=== PATIENT | female | born 1990 | race Caucasian/White ===

== ENCOUNTER 2016-10-12 14:11 | Emergency (ER) | payer BC, OTHER ==
[2016-10-12 14:53] VITALS: RESP 18
[2016-10-12] MEDS ORDERED: predniSONE 50 MG TAB PO STA (15:12)
--- NOTE | 2016-10-12 15:36 | XR ---
Cervical spine HISTORY: Numbness down left arm 5 views of the cervical spine of 7 images There is loss of the normal lordosis. Anterolisthesis grade 1 C2-3, C3-4, C4-5. Cervical vertebral aristides dies show preserved height. Bone mineralization. Prevertebral soft tissues are normal. No evident for aminal encroachment. IMPRESSION: No acute fracture or subluxation.
--- NOTE | 2016-10-12 15:43 | ED ---
Neck Injury/Pain HPI - General Chief Complaint: Neck Pain/Injury Stated Complaint: NecK Pain/Numbness left arm Time Seen by Provider: 10/12/16 14:40 Source: RN notes reviewed Mode of arrival: ambulatory Limitations: no limitations - History of Present Illness Initial Comments: Patient is a 26-year-old female presents to the emergency room for evaluation of numbness and tingling in left arm. Patient states she has a history of neck pain over the past few months. Patient states neck pain has been getting worse. Patient states she woke up this morning and her left arm felt like its half fallen asleep. Patient states she can't move her arm secondary to it feeling numb. Patient states she's having left-sided neck pain. Patient denies any specific injury to her neck. Patient states that her left arm feels weak. Patient states taking ibuprofen with no relief of symptoms. - Related Data Home Medications Medication Instructions Recorded Confirmed Norgestimate-Ethinyl Estradiol 1 tab PO DAILY 10/11/15 10/11/15 [Ortho Tri-Cyclen 28 Tablet] Previous Rx's Medication Instructions Recorded Ibuprofen [Motrin] 600 mg PO Q6HR PRN #20 tab 10/12/16 predniSONE 50 mg PO DAILY #5 tab 10/12/16 Allergies Allergy/AdvReac Type Severity Reaction Status Date / Time No Known Allergies Allergy Verified 10/12/16 14:41 Review of Systems ROS Statement: Those systems with pertinent positive or pertinent negative responses have been documented in the HPI. ROS Other: All systems not noted in ROS Statement are negative. Past Medical History Past Medical History: Asthma Additional Past Medical History / Comment(s): sports induced, edema in fingers History of Any Multi-Drug Resistant Organisms: None Reported Past Surgical History: Section Past Anesthesia/Blood Transfusion Reactions: No Reported Reaction Past Psychological History: Anxiety, Bipolar, Depression Smoking Status: Never smoker Past Alcohol Use History: Occasional Past Drug Use History: None Reported - Past Family History Mother Family Medical History: Thyroid Disorder Additional Family Medical History / Comment(s): graves disease General Exam - General Exam Comments Initial Comments: Sitting in exam room, no acute distress. Limitations: no limitations General appearance: alert, in no apparent distress Head exam: Present: atraumatic, normocephalic, normal inspection Eye exam: Present: normal appearance ENT exam: Present: normal exam Neck exam: Present: normal inspection, full ROM. Absent: tenderness, lymphadenopathy Respiratory exam: Present: normal lung sounds bilaterally. Absent: respiratory distress Cardiovascular Exam: Present: regular rate, normal rhythm, normal heart sounds Back exam: Present: normal inspection Neurological exam: Present: alert, oriented X3, CN II-XII intact Expanded Sensory exam: Upper Extremity Light Touch: Normal, Lower Extremity Light Touch: Normal Motor strength exam: RUE: 5, LUE: 3 Psychiatric exam: Present: normal affect, normal mood Skin exam: Present: warm, dry, intact, normal color. Absent: rash Course Vital Signs 10/12/16 10/12/16 14:41 16:25 Temperature 97.8 F 98.1 F Pulse Rate 84 70 Respiratory 18 18 Rate Blood Pressure 131/59 134/66 O2 Sat by Pulse 98 98 Oximetry Medical Decision Making - Medical Decision Making Patient is a 26-year-old female presents emergency room for ablation left arm weakness. Patient states having minor neck pain. Patient does have full range of motion of her neck. Patient does have decreased strength in her right arm. Patient denies any other symptoms. Patient does appear to have cervical radiculopathy/paresthesia. Patient will be started on prednisone and advised to follow-up with primary care provider for possible MRI if symptoms are not improving. Patient states she understands everything that was discussed with her. Return parameters discussed. Case discussed with Dr. Ritchie. - Radiology Data Radiology results: report reviewed, image reviewed Disposition Clinical Impression: Cervical radiculopathy, Paresthesia and pain of left extremity Disposition: HOME SELF-CARE Condition: Good Instructions: Paresthesia (ED), Cervical Radiculopathy (ED), Neck Pain (ED) Additional Instructions: Take prednisone as directed. Take ibuprofen as needed for pain. Apply warm moist heat. Please follow-up with primary care provider in 24-48 hours for further evaluation. If any new symptom arises or symptoms worsen, return to ER as soon as possible. Prescriptions: Ibuprofen [Motrin] 600 mg PO Q6HR PRN #20 tab PRN Reason: Pain predniSONE 50 mg PO DAILY #5 tab Referrals: Mic Gross MD [Primary Care Provider] - 1-2 days Time of Disposition: 16:15
[2016-10-12 16:26] VITALS: BP 134/66; PULSE 70; TEMP 98.1
== END 2016-10-12 16:26 | disposition home or self-care (01) ==
LOC: EC 14:11
DX: M54.12 Radiculopathy, cervical region (principal); Z79.3 Long term (current) use of hormonal contraceptives
CPT/HCPCS: 72050; 99284; J7512

== ENCOUNTER 2017-01-11 21:03 | Emergency (ER) | payer BC ==
[2017-01-11 21:40] VITALS: BP 106/67; PULSE 80; RESP 20; TEMP 98.3
--- NOTE | 2017-01-11 23:54 | ED ---
Female Urogenital HPI - General Chief complaint: Vaginal Bleeding Stated complaint: vag spotting (8 weeks ) Time Seen by Provider: 01/11/17 22:39 Source: patient, RN notes reviewed, old records reviewed Mode of arrival: ambulatory Limitations: no limitations - History of Present Illness Initial comments: Is a 26-year-old female presents emergency Department chief complaint of vaginal spotting. Patient reports that she saw her [facility] CORONER earlier today and had her first exam. She reports that she is approximately 8 weeks . This is her third . No previous issues with the first 2 pregnancies. She did have 2 C-sections. Patient states that she's had no blood work at this time. She states she does have some lower abdominal cramping. Denies any nausea or vomiting, urinary symptoms or any other complaints. - Related Data Home Medications Medication Instructions Recorded Confirmed Pedi Multivit No.25/Folic Acid 1 tab PO BID 01/11/17 01/11/17 [Flintstones Multivit Chew Tab] Allergies Allergy/AdvReac Type Severity Reaction Status Date / Time No Known Allergies Allergy Verified 01/11/17 22:40 Review of Systems ROS Statement: Those systems with pertinent positive or pertinent negative responses have been documented in the HPI. ROS Other: All systems not noted in ROS Statement are negative. Past Medical History Past Medical History: Asthma Additional Past Medical History / Comment(s): sports induced, edema in fingers History of Any Multi-Drug Resistant Organisms: None Reported Past Surgical History: Section Past Anesthesia/Blood Transfusion Reactions: No Reported Reaction Past Psychological History: Anxiety, Bipolar, Depression Smoking Status: Never smoker Past Alcohol Use History: None Reported Past Drug Use History: None Reported - Past Family History Mother Family Medical History: Thyroid Disorder Additional Family Medical History / Comment(s): graves disease General Exam - General Exam Comments Initial Comments: Pleasant 26 [place] male. No distress. Limitations: no limitations General appearance: alert, in no apparent distress Head exam: Present: atraumatic, normocephalic, normal inspection Eye exam: Present: normal appearance, PERRL, EOMI. Absent: scleral icterus, conjunctival injection, periorbital swelling ENT exam: Present: normal exam, mucous membranes moist Neck exam: Present: normal inspection. Absent: tenderness, meningismus, lymphadenopathy Respiratory exam: Present: normal lung sounds bilaterally. Absent: respiratory distress, wheezes, rales, rhonchi, stridor Cardiovascular Exam: Present: regular rate, normal rhythm, normal heart sounds. Absent: systolic murmur, diastolic murmur, rubs, gallop, clicks GI/Abdominal exam: Present: soft, normal bowel sounds. Absent: distended, tenderness, guarding, rebound, rigid Extremities exam: Present: normal inspection, full ROM, normal capillary refill. Absent: tenderness, pedal edema, joint swelling, calf tenderness Back exam: Present: normal inspection Neurological exam: Present: alert, oriented X3, CN II-XII intact Psychiatric exam: Present: normal affect, normal mood Course Vital Signs 01/11/17 21:38 Temperature 98.3 F Pulse Rate 80 Respiratory 20 Rate Blood Pressure 106/67 O2 Sat by Pulse 100 Oximetry Medical Decision Making - Lab Data Lab Results 01/11/17 Range/Units 22:17 Blood Type B Positive Blood Type Recheck No - Radiology Data Radiology results: report reviewed 6 IUP measuring 7 weeks and 6 days. heart tones 181 bpm. No evidence of deepa-sac hemorrhage identified. Disposition Clinical Impression: Threatened miscarriage Disposition: HOME SELF-CARE Condition: Good Instructions: Threatened Miscarriage (ED) Additional Instructions: Patient is to follow-up with your [facility]. Repeat blood work in 2 days. Return to the emergency department if any alarming signs or symptoms occur. Referrals: Mic Gross MD [Primary Care Provider] - 1-2 days Time of Disposition: 00:24
--- NOTE | 2017-01-12 00:16 | US ---
History: Reason: pain Exam: US OB 1st TRIMESTER Comparison: None available FINDINGS: Single live intrauterine measuring 7 weeks and 6 days by crown- rump length. 8 weeks and 2 days by mean sac diameter. Yolk sac is present measuring 4 mm. heart tones 181 bpm, elevated. No evidence of deepa-sac hemorrhage identified. The ovaries are not identified. No evidence of adnexal mass. No free fluid seen. IMPRESSION: Single live intrauterine measuring 7 weeks and 6 days by crown- rump length. heart tones 181 bpm, elevated. No evidence of deepa-sac hemorrhage identified.
== END 2017-01-12 00:35 | disposition home or self-care (01) ==
LOC: EC 21:03
DX: O20.0 Threatened abortion (principal); Z3A.08 8 weeks gestation of pregnancy; Z79.899 Other long term (current) drug therapy
CPT/HCPCS: 36415; 76801; 84702; 86900; 86901; 99284

== ENCOUNTER → 2017-01-29 | Outpatient (CLI) | payer BC ==
[2017-01-29 10:16] LABS: CH 29.6; CHCM 32.9; HCT 38.9 % (34.0-46.0); HDW 2.26; HGB 12.8 gm/dL (11.4-16.0); MCH 29.7 pg (25.0-35.0); MCHC 32.9 g/dL (31.0-37.0); MCV 90.1 fL (80.0-100.0); Mean Platelet Volume 6.5; RBC 4.32 m/uL (3.80-5.40); RDW 13.6 % (11.5-15.5); WBC 11.4 k/uL (3.8-10.6)
[2017-01-29 10:39] LABS: Glucose 76 mg/dL (74-99); Non-African American GFR(MDRD) >60 (>60 ml/min/1.73 sqM)
[2017-01-29 11:09] LABS: Hepatitis B Surface Ag Index 0.07
[2017-01-29 15:26] LABS: Treponemal Ab Non-Reactive (Non-Reactive)
== END | disposition home or self-care (01) ==
LOC: LABWHC1 09:44
PROVIDERS: ATTEND Obstetrics & Gynecology
DX: O26.811 Pregnancy related exhaustion and fatigue, first trimester (principal); Z3A.00 Weeks of gestation of pregnancy not specified
CPT/HCPCS: 36415; 82565; 82947; 85027; 86762; 86780; 86850; 86900; 86901; 87340; 87390

== ENCOUNTER 2017-04-17 18:37 | Emergency (ER) | payer BC ==
[2017-04-17 19:13] VITALS: BP 114/59; PULSE 90; RESP 18; TEMP 98.6
[2017-04-17] MEDS ORDERED: Acetaminophen-Codeine 300-30mg TAB PO STA (20:42)
[2017-04-17] MEDS ORDERED: ONDANSETRON 4 MG ODT STARTER PACK 2 TAB BTL PO STA (20:42)
--- NOTE | 2017-04-17 20:49 | ED ---
General Adult HPI - General Chief complaint: Headache Stated complaint: Headache/can not see out lt eye Time Seen by Provider: 04/17/17 20:18 Source: patient, family, RN notes reviewed Mode of arrival: ambulatory Limitations: no limitations - History of Present Illness Initial comments: Chief complaint and history of present illness a 26-year-old female here with her . The patient is 20 weeks . She's had on-again off-again headache for 2 months. She does have a history of headaches and migraines. Tylenol has not been getting rid of the headache. Patient has a mild photophobia and some nausea and vomiting. No fever. No diarrhea. No rashes. - Related Data Home Medications Medication Instructions Recorded Confirmed Pedi Multivit No.25/Folic Acid 600 mcg PO DAILY 01/11/17 04/17/17 [Flintstones Multivit Chew Tab] Previous Rx's Medication Instructions Recorded Acetaminophen-Codeine 300-30mg 1 tab PO Q6H PRN #12 tablet 04/17/17 [Tylenol #3] Ondansetron Odt [Zofran Odt] 4 mg PO Q8HR PRN #10 tab 04/17/17 Allergies Allergy/AdvReac Type Severity Reaction Status Date / Time No Known Allergies Allergy Verified 04/17/17 20:21 Review of Systems ROS Statement: Those systems with pertinent positive or pertinent negative responses have been documented in the HPI. Review of systems. Mild headache mild photophobia. No meningeal irritation with neck flexion. No chest pain shortness breath no complaints of any problems. She is nauseated and has vomited several times. No neuro deficits. All systems were reviewed. Past medical problems asthma, migraines. Surgeries include 2 C-sections. Family history no cancers. Patient denies ALLERGIES nonsmoker drink alcohol rarely socially. ROS Other: All systems not noted in ROS Statement are negative. Past Medical History Past Medical History: Asthma Additional Past Medical History / Comment(s): migraines History of Any Multi-Drug Resistant Organisms: None Reported Past Surgical History: Section Past Anesthesia/Blood Transfusion Reactions: No Reported Reaction Past Psychological History: Anxiety, Bipolar, Depression Smoking Status: Never smoker Past Alcohol Use History: None Reported Past Drug Use History: None Reported - Past Family History Mother Family Medical History: Thyroid Disorder Additional Family Medical History / Comment(s): graves disease General Exam - General Exam Comments Initial Comments: General: The patient is awake and alert, U because of a migraine type headache with nausea vomiting. Vital signs are stable temperature 98.6 pulse 90 respiratory rate 18 pulse ox 90% room air blood pressure 114/59 Eye: Pupils are equal, round and reactive to light, extra-ocular movements are intact ; there is normal conjunctiva bilaterally. No signs of icterus. Mild photophobia Ears, nose, mouth and throat: There are moist mucous membranes and no oral lesions. Neck: The neck is supple, there is no tenderness, no meningeal irritation with neck flexion and extension. No meningismus.. Cardiovascular: There is a regular rate and rhythm. No murmur, rub or gallop is appreciated. Respiratory: Lungs are clear to auscultation, respirations are non-labored, breath sounds are equal. No wheezes, stridor, rales, or rhonchi. Gastrointestinal: Facial vomiting with headache and migraine headaches. Patient's 22 weeks . No vaginal discharge or any complaints. Back: No complaint of back pain. Musculoskeletal: Full range of motion upper and lower extremities. Neurological: No focal or lateralizing findings. Skin: Skin is warm and dry and no rashes or lesions are noted. Limitations: no limitations Course Vital Signs 04/17/17 19:10 Temperature 98.6 F Pulse Rate 90 Respiratory 18 Rate Blood Pressure 114/59 O2 Sat by Pulse 98 Oximetry Medical Decision Making - Medical Decision Making Medical decision making; the patient has a history of migraines. History of several months of headache that comes and goes. She's had some nausea and vomiting today. She is 22 weeks . The patient's only when trying Tylenol at home. The plan the patient will be tried on Tylenol No. 3 one every 4-6 hours when necessary pain as well as Zofran to control nausea and fluids. Patient was called told to call follow-up with her DIRECTOR EXPORT. Disposition Clinical Impression: Migraine Disposition: HOME SELF-CARE Condition: Stable Instructions: Acute Headache (ED) Additional Instructions: Use Tylenol 3 sparingly to control headache. Zofran for nausea. Follow-up with family physician and DIRECTOR EXPORT Prescriptions: Acetaminophen-Codeine 300-30mg [Tylenol #3] 1 tab PO Q6H PRN #12 tablet PRN Reason: Pain Ondansetron Odt [Zofran Odt] 4 mg PO Q8HR PRN #10 tab PRN Reason: Nausea Referrals: Mic Gross MD [Primary Care Provider] - 1-2 days Time of Disposition: 20:49
== END 2017-04-17 21:05 | disposition home or self-care (01) ==
LOC: EC 18:37
DX: O99.352 Diseases of the nervous system complicating pregnancy, second trimester (principal); G43.909 Migraine, unspecified, not intractable, without status migrainosus; Z3A.22 22 weeks gestation of pregnancy
CPT/HCPCS: 99282; S0119

== ENCOUNTER 2017-05-27 18:16 | Outpatient (CLI) | payer BC ==
[2017-05-27 18:46] VITALS: BP 119/58; PULSE 83; RESP 16; TEMP 98
[2017-05-27 19:11] LABS: Amorphous Sediment,Urine Occasional /hpf; Appearance,Urine Turbid (Clear); Bilirubin,Urine Negative (Negative); Blood,Urine Negative (Negative); Color,Urine Yellow; Glucose,Urine (UA) Negative (Negative); Ketones,Urine Negative (Negative); Leukocyte Esterase,Urine Small (Negative); Mucus,Urine Occasional /hpf; Nitrite,Urine Negative (Negative); Protein,Urine Trace (Negative); RBC,Urine 6 /hpf (0-5); Squamous Epithelial Cell,Urine 2 /hpf (0-4); Urobilinogen,Urine <2.0 mg/dL (<2.0); WBC,Urine 12 /hpf (0-5)
--- NOTE | 2017-05-28 07:12 | P.MSEPDOC ---
Presenting Problems - Arrival Data Date of Arrival on Unit: 05/27/17 Time of Arrival on Unit: 18:25 Mode of Transport: Wheelchair - Complaint OB-Reason for Admission/Chief Complaint: Other Comment: pt arrived c/o unsure whether her water is leaking states shes had milky white dicahrge and cramping since yesterday. pt al;so states has been up walking around and shopping all day yesterday pt 27 5/7 weeks gestation Medical History - Information : 3 Para: 2 Term: 2 : 0 Abortions: Spontaneous or Elective: 0 Number of Living Children: 2 - Gestational Age Gestational Age by ALLEGRA (wks/days): 27 Weeks and 4 Days - History Complications: Prior Review of Systems - Review of Systems Constitutional: No problems Breast: No problems ENT: No problems Cardiovascular: No problems Respiratory: No problems Gastrointestinal: No problems Genitourinary: No problems Musculoskeletal: No problems Neurological: No problems Skin: No problems Vital Signs - Temperature Temperature: 98 F Temperature Source: Oral - Pulse Right Brachial Pulse Rate: 83 Pulse Assessment Method: Automatic Cuff - Respirations Respiratory Rate: 16 Oxygen Delivery Method: Room Air O2 Sat by Pulse Oximetry: 97 - Blood Pressure Right Arm Blood Pressure: 119/58 Blood Pressure Mean: 78 Blood Pressure Source: Automatic Cuff Medical Screen Scoring (Pre) - Cervical Exam Dilation: 0 cm = 0 Membranes: Intact - Uterine Contractions Frequency: N/A Duration: N/A Intensity: N/A - Maternal Vital Signs Maternal Temperature: N/A Maternal Blood Pressure: N/A Signs of Preeclampsia: N/A Maternal Respirations: N/A - Pain Assessment Pain Location and Character: Lower, Back Pain Scale Used: Numeric (1 - 10) Pain Intensity: 2 Pain Management Goal: 0 Pain Description: Cramping Pain Radiation Location: 0 Pain Frequency: Intermittent Pain Duration: 2 Pain Duration Units: Hours Pain Behavior: None Exhibited Effects of Pain: 0 Pain Aggravating Factors: None - Maternal Trauma Maternal Trauma: N/A - Assessment Baseline FHR: 130 Heart Rate - NICHD Category: Category I (Normal) = 0 NST: Reactive Position: N/A Station: N/A - Total Score Total Score (Pre): 0 - Level of Risk Level of Risk: N/A Physician Notification (Pre) - Physician Notified Physician Notified Date: 05/27/17 Physician Notified Time: 19:06 Physician/Practitioner Notifed:: Dr Hansen Spoke With: Dr Hansen New Order Received: Yes - Notification Comment Comment: orders to follow up with dr patel tomorrow morning. u/a results will be available for access by dr patel at that visit. pt may be discharged home at this time Disposition - Disposition OB Disposition: Discharge to home Discharge Date: 05/27/17 Discharge Time: 19:25 I agree with the RN Medical Screening Exam: Yes Risk & Benefit of care provided described in d/c instruction: Yes Diagnosis: PELVIC AND PERINEAL PAIN
== END 2017-05-27 19:13 | disposition home or self-care (01) ==
LOC: FBPOP 18:16
PROVIDERS: ATTEND Obstetrics & Gynecology
DX: O26.892 Other specified pregnancy related conditions, second trimester (principal); R10.2 Pelvic and perineal pain; R25.2 Cramp and spasm; N89.8 Other specified noninflammatory disorders of vagina; Z3A.27 27 weeks gestation of pregnancy
CPT/HCPCS: 81001; 84112; 99213

== ENCOUNTER 2017-08-16 09:11 | Inpatient (IN) | payer BC ==
--- NOTE | 2017-08-15 20:10 | P.HPOB ---
History of Present Illness H&P Date: 08/05/17 Chief Complaint: Scheduled repeat section with tubal ligation This is a 26-year-old female 3 para 2 with an estimated date of confinement of 08/21/2017, estimated gestational age of 39-2/7 weeks, who presents to labor and delivery for scheduled repeat section with bilateral partial salpingectomy for family planning. She has been feeling good movement and has been feeling more contractions and back pain. course has been complicated by abdominal and back pain along with some shortness of breath and migraines during the beginning of her . labs: GC/chlamydia-negative HIV-nonreactive Rubella-low positive Syphilis antibody-negative nonreactive Random glucose-76 Hepatitis B surface antigen-negative Hemoglobin-12.8 Blood type-A+ Antibody screen-negative Quad screen-within normal limits Obstetrical ultrasound-normal anatomy One hour Glucola-108 Group B streptococcus-negative Obstetrical history: . History of 2 previous sections. Gynecologic history: She does have a history of chlamydia treated during . Social history: She is single. 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 Review of Systems Constitutional: Denies chills, Denies fever Eyes: denies blurred vision, denies pain Ears, nose, mouth and throat: Reports headache, Denies sore throat Cardiovascular: Denies chest pain, Denies shortness of breath Respiratory: Denies cough Gastrointestinal: Reports abdominal pain Genitourinary: Reports pelvic pain, Reports Musculoskeletal: Reports low back pain Integumentary: Denies pruritus, Denies rash Neurological: Denies numbness, Denies weakness Past Medical History Past Medical History: Asthma Additional Past Medical History / Comment(s): migraines History of Any Multi-Drug Resistant Organisms: None Reported Past Surgical History: Section Past Anesthesia/Blood Transfusion Reactions: No Reported Reaction Past Psychological History: Bipolar Smoking Status: Never smoker Past Alcohol Use History: None Reported Past Drug Use History: None Reported - Past Family History Mother Family Medical History: Thyroid Disorder Additional Family Medical History / Comment(s): graves disease Medications and Allergies Home Medications Medication Instructions Recorded Confirmed Type Pedi Multivit No.25/Folic Acid 600 mcg PO DAILY 01/11/17 05/27/17 History [Flintstones Multivit Chew Tab] Loratadine [Claritin] 10 mg PO DAILY 05/27/17 05/27/17 History Allergies Allergy/AdvReac Type Severity Reaction Status Date / Time No Known Allergies Allergy Verified 05/27/17 18:32 Exam Osteopathic Statement: *. No significant issues noted on an osteopathic structural exam other than those noted in the History and Physical/Consult. HEENT: Within normal limits Heart: Regular rate and rhythm Lungs: Clear to auscultation bilaterally Abdomen: Cervix: Closed/60%/-2 heart tones: 140s by Doppler Extremities: Negative Homans Assessment and Plan (1) 39 weeks gestation of Status: Acute Code(s): Z3A.39 - 39 WEEKS GESTATION OF SNOMED Code( s): 53653849 (2) Previous delivery affecting Status: Acute Code(s): O34.21 - MATERNAL CARE FOR SCAR FROM PREVIOUS * DO NOT USE * SNOMED Code(s): 232032154 (3) Family planning Status: Acute Code(s): Z30.09 - ENCOUNTER FOR OT GENERAL CNSL AND ADVICE ON CONTRACEPTION SNOMED Code(s): 067072467 Plan: Proceed with repeat low transverse section with bilateral partial salpingectomy. I have discussed the risks, benefits, and alternative therapies for the above- mentioned procedure and for both sedation/anesthesia as well as necessary blood products administration, if indicated, as they pertain to this patient. The patient has indicated her understanding and acceptance of the risks and procedures discussed.
[2017-08-16] MEDS ORDERED: ceFAZolin IN SWFI 2 GM/20 ML SYRINGE IVP ONE (10:27)
[2017-08-16] MEDS ORDERED: LIDOCAINE 1% 20 ML VIAL (10MG/ML) FOR IV START INTRADERMA PRN (10:27)
[2017-08-16] MEDS ORDERED: CITRIC ACID-SODIUM CITRATE 15 ML CUP PO ONE (10:27)
[2017-08-16] MEDS ORDERED: LACTATED RINGERS 1,000 ML IV SCH ×2 (10:27→13:03)
[2017-08-16] MEDS ORDERED: LACTATED RINGERS 1,000 ML IV ONE (10:27)
[2017-08-16 10:38] VITALS: BMI 37.4
[2017-08-16 11:37] LABS: Basophils % (A) 0 %; Eosinophils # (A) 0.1 k/uL (0-0.7); Eosinophils % (A) 0 %; HCT 29.2 % (34.0-46.0); HGB 9.3 gm/dL (11.4-16.0); Lymphocytes # (A) 2.3 k/uL (1.0-4.8); Lymphocytes % (A) 20 %; MCH 25.9 pg (25.0-35.0); MCHC 31.8 g/dL (31.0-37.0); MCV 81.2 fL (80.0-100.0); Mean Platelet Volume 8.1; Monocytes # (A) 0.6 k/uL (0-1.0); Monocytes % (A) 5 %; Neutrophils # (A) 8.4 k/uL (1.3-7.7); Neutrophils % (A) 73 %; Platelet Count 271 k/uL (150-450); RBC 3.59 m/uL (3.80-5.40); RDW 15.4 % (11.5-15.5); WBC 11.4 k/uL (3.8-10.6)
[2017-08-16] MEDS ORDERED: ONDANSETRON 4 MG/2 ML VIAL ONE (12:13)
[2017-08-16] MEDS ORDERED: NALBUPHINE 10 MG/ML AMPUL ONE (12:13)
[2017-08-16] MEDS ORDERED: KETOROLAC 30 MG/ML 1 ML VIAL ONE (12:13)
[2017-08-16] MEDS ORDERED: PHENYLEPHRINE-0.9% NACL SYG 1 MG/10 ML SYRINGE ONE (12:13)
[2017-08-16] MEDS ORDERED: FAMOTIDINE 20 MG/2 ML VIAL ONE (12:13)
[2017-08-16] MEDS ORDERED: MORPHINE SULFATE (PF) 0.3 MG/0.3 ML SYR ONE (12:13)
[2017-08-16] MEDS ORDERED: NALBUPHINE 10 MG/ML AMPUL IV PRN (13:02)
[2017-08-16] MEDS ORDERED: ONDANSETRON 4 MG/2 ML VIAL IVP PRN ×2 (13:02→13:03)
[2017-08-16] MEDS ORDERED: diphenhydrAMINE 50 MG/ML 1 ML VIAL IVP PRN ×3 (13:02→13:03)
[2017-08-16] MEDS ORDERED: NALOXONE 0.4 MG/ML 1 ML VIAL IV PRN ×2 (13:02→13:03)
[2017-08-16] MEDS ORDERED: MORPHINE SULFATE 4MG/4ML SYRG IVP PRN (13:02)
[2017-08-16] MEDS ORDERED: METOCLOPRAMIDE 5 MG/ML 2 ML VIAL IVP PRN (13:03)
[2017-08-16] MEDS ORDERED: diphenhydrAMINE 50 MG CAP PO PRN (13:03)
[2017-08-16] MEDS ORDERED: HYDROcodone/APAP 5-325MG 1 EACH TAB PO PRN (13:03)
[2017-08-16] MEDS ORDERED: OXYTOCIN 20 UNITS/1000 ML NS 1,000 ML IV SCH (13:03)
[2017-08-16] MEDS ORDERED: MEASLES-MUMPS-RUBELLA VACC/PF 12,500 UNIT/0.5 ML VIAL SQ ONE (13:03)
[2017-08-16] MEDS ORDERED: ACETAMINOPHEN TAB 325 MG TAB PO PRN (13:03)
[2017-08-16] MEDS ORDERED: diphenhydrAMINE 25 MG CAP PO PRN (13:03)
[2017-08-16] MEDS ORDERED: ZOLPIDEM 5 MG TAB PO PRN (13:03)
--- NOTE | 2017-08-16 13:04 | P.OP ---
Date of Procedure: 08/16/17 Preoperative Diagnosis: 1. Intrauterine at 39-2/7 weeks. 2. History of previous section. 3. Family-planning. Postoperative Diagnosis: Same Procedure(s) Performed: Repeat low transverse section with bilateral partial salpingectomy Anesthesia: spinal (Duramorph) Surgeon: Daniela Mukherjee Monorail Hooker #1: Maxim Srivastava Estimated Blood Loss (ml): 500 Pathology: other (Placenta and portions of right and left fallopian tubes) Condition: stable Disposition: floor Indications for Procedure: This is a 26-year-old female 3 para 2 at 39-2/7 weeks who presented for scheduled section with bilateral partial salpingectomy. I have discussed the risks, benefits, and alternative therapies for the above- mentioned procedure and for both sedation/anesthesia as well as necessary blood products administration, if indicated, as they pertain to this patient. The patient has indicated her understanding and acceptance of the risks and procedures discussed. Operative Findings: A viable male infant is noted in the vertex presentation with scores of 9 at 1 minute and 9 at 5 minutes and weight of 8 lbs. 11 oz. Nuchal cord times one was noted. Normal uterus tubes and ovaries are noted. Description of Procedure: The patient is taken to the operating room where she is placed in the dorsal supine position with leftward tilt after spinal Duramorph anesthesia is given. She is prepped and draped in the normal sterile fashion. Skin was tested and found to be adequately anesthetized. A Pfannenstiel skin incision was made with a scalpel through the previous laparotomy scar. A second knife was used to carry the incision down to the underlying layer of fascia. The fascia was nicked in the midline with a scalpel and then extended laterally bilaterally with Cruz scissors. The anterior lip of the fascia was grasped with 2 Sunita clamps and then dissected off the underlying rectus muscle in the midline with Cruz scissors. The inferior aspect of the fascial incision was grasped with 2 Sunita clamps and dissected off the underlying rectus muscle and the midline with Cruz scissors. Next the peritoneum layer was tented up with 2 hemostats and then entered sharply with the scalpel. The incision is extended superiorly and inferiorly with Metzenbaum scissors. Next a DeLee retractor is placed. The vesicouterine peritoneum is entered sharply with Metzenbaum scissors and extended laterally bilaterally with Metzenbaum scissors and then the bladder flap is pushed inferiorly. The lower uterine segment is incised in transverse fashion with the scalpel and then bluntly entered with a hemostat. Clear fluid is noted. The incision was then extended laterally bilaterally with 2 fingers. Next the infant's head is delivered through the incision. Nose and mouth are bulb suctioned. The remainder of the is easily delivered and placed on mother's abdomen. Cord is clamped and cut. is taken to warmer by nursing staff. Uterine fundus is gently massaged and placenta is delivered manually. Uterus is exteriorized and cleared of all clots and debris. Uterine incision is closed with 0 Vicryl suture in a running locked fashion. A second layer of 0 Vicryl suture is used in a running fashion for hemostasis. Once adequate hemostasis as assured, the vesicouterine peritoneum is reapproximated with 2-0 Vicryl suture in a running fashion. Next attention is turned to the tubes. The right fallopian tube is grasped in the midportion with a hemostat. The mesosalpinx is entered with Bovie cautery. Next 0 Vicryl suture is tied 2 times around both the proximal and distal portion of the tube. The knuckle of tube was then removed with Metzenbaum scissors. The ends of the tube were then cauterized with Bovie cautery. Good hemostasis is noted. The same procedure is carried out on the left fallopian tube. Once adequate hemostasis as assured , the posterior cul-de-sac is suctioned of all clots and debris. Uterus is returned to the abdomen. Incision is noted to be hemostatic. Both tubal segments are in inspected and found to be hemostatic. Peritoneal layer is closed with 0 Vicryl suture in a running fashion. Muscle layer is reapproximated with 0 Vicryl suture in interrupted fashion. Fascia layer is then closed with 0 PDS suture with 2 sutures meeting in the midline and the knots buried in either side and in the midline. The subcutaneous tissue was then closed with 2-0 Vicryl suture. Skin layer was then closed with alexis. All sponge and needle counts are correct. The patient is taken to recovery room in stable condition.
[2017-08-16] MEDS: IBUPROFEN 600 MG TAB PO PRN (16:57)
[2017-08-16] MEDS: SENNOSIDES-DOCUSATE SODIUM 1 EACH TAB PO SCH (20:21)
[2017-08-17] MEDS: IBUPROFEN 600 MG TAB PO PRN ×3 (02:52→17:51)
[2017-08-17 08:10] LABS: Basophils % (A) 0 %; Eosinophils # (A) 0.1 k/uL (0-0.7); Eosinophils % (A) 0 %; HCT 26.8 % (34.0-46.0); HGB 8.6 gm/dL (11.4-16.0); Lymphocytes # (A) 2.8 k/uL (1.0-4.8); Lymphocytes % (A) 21 %; MCH 25.9 pg (25.0-35.0); MCHC 32.3 g/dL (31.0-37.0); MCV 80.1 fL (80.0-100.0); Mean Platelet Volume 7.7; Monocytes # (A) 0.7 k/uL (0-1.0); Monocytes % (A) 5 %; Neutrophils # (A) 9.4 k/uL (1.3-7.7); Neutrophils % (A) 72 %; Platelet Count 238 k/uL (150-450); RBC 3.34 m/uL (3.80-5.40); RDW 15.3 % (11.5-15.5); WBC 13.1 k/uL (3.8-10.6)
--- NOTE | 2017-08-17 09:13 | P.PNOBGPC ---
Subjective - Subjective Principal diagnosis: Status post repeat section with tubal postoperative day #1 Interval history: Patient is doing well. She is ambulated. Lochia is decreasing. She is passing flatus but no bowel movement yet. She is breast-feeding. Patient reports: Reports appetite normal, Reports voiding normally, Reports pain well controlled, Reports ambulating normally : doing well, nursing well Objective - Vital Signs Latest vital signs: Vital Signs Temp Pulse Resp BP Pulse Ox 08/17/17 04:00 98.1 F 52 L 18 133/68 08/17/17 00:00 98.1 F 78 18 140/77 08/16/17 20:00 98.1 F 80 18 140/77 08/16/17 18:00 16 08/16/17 16:00 97.9 F 82 16 126/60 08/16/17 15:07 95 14 128/67 08/16/17 14:37 79 16 139/67 08/16/17 14:07 71 16 132/74 08/16/17 14:02 96 08/16/17 13:52 87 14 123/72 08/16/17 13:37 83 16 128/68 08/16/17 13:22 91 14 122/58 96 08/16/17 13:09 96.1 F L 91 16 112/57 08/16/17 10:29 97.1 F L 98 16 137/87 Intake and Output 08/16/17 08/17/17 08/17/17 22:59 06:59 14:59 Intake Total 2400 400 Output Total 700 250 Balance 1700 150 Intake: Intake, IV Titration 2000 Amount Lactated Ringers 1,000 ml 2000 @ 125 mls/hr IV .Q8H [facility] Rx#:[id number] Oral 400 400 Output: Urine 700 250 Straight 250 Other: Voiding Method Indwelling Catheter Indwelling Catheter - Exam Extremities: Present: normal. Absent: tenderness Abdomen: Present: normal appearance, soft (Positive bowel sounds 4). Absent: distention, tenderness Incision: Present: normal, dry. Absent: erythematous Uterus: Present: normal, firm. Absent: tenderness - Labs Labs: Abnormal Lab Results - Last 24 Hours (Table) 08/16/17 08/17/17 Range/Units 11:28 07:52 WBC 11.4 H 13.1 H (3.8-10.6) k/uL RBC 3.59 L 3.34 L (3.80-5.40) m/uL Hgb 9.3 L 8.6 L (11.4-16.0) gm/dL Hct 29.2 L 26.8 L (34.0-46.0) % Neutrophils # 8.4 H 9.4 H (1.3-7.7) k/uL Assessment and Plan Assessment: Status post repeat section with tubal ligation postoperative day #1 (1) 39 weeks gestation of Current Visit: Yes Status: Acute Code(s): Z3A.39 - 39 WEEKS GESTATION OF SNOMED Code(s): 16295806 (2) Previous delivery affecting Current Visit: No Status: Acute Code(s): O34.21 - MATERNAL CARE FOR SCAR FROM PREVIOUS * DO NOT USE * SNOMED Code(s): 276985531 (3) Family planning Current Visit: Yes Status: Acute Code(s): Z30.09 - ENCOUNTER FOR OTH GENERAL CNSL AND ADVICE ON CONTRACEPTION SNOMED Code(s): 966067316 Plan: Continue with postoperative and care.
[2017-08-17] MEDS: SENNOSIDES-DOCUSATE SODIUM 1 EACH TAB PO SCH ×2 (11:16→20:13)
[2017-08-17] MEDS: HYDROcodone/APAP 5-325MG 1 EACH TAB PO PRN (20:14)
[2017-08-18] MEDS: IBUPROFEN 600 MG TAB PO PRN (00:52)
[2017-08-18] MEDS: SENNOSIDES-DOCUSATE SODIUM 1 EACH TAB PO SCH (07:45)
[2017-08-18] MEDS: HYDROcodone/APAP 5-325MG 1 EACH TAB PO PRN (07:45)
[2017-08-18 08:20] VITALS: BP 127/69; PULSE 75; RESP 18; TEMP 98.2
--- NOTE | 2017-08-18 11:17 | P.DS ---
Providers Date of admission: 08/16/17 10:05 Expected date of discharge: 08/18/17 Attending physician: Daniela Mukherjee Primary care physician: Stated None - Discharge Diagnosis(es) (1) Status post repeat low transverse section Current Visit: Yes Status: Acute Hospital Course: Patient presented for repeat low transverse underwent this procedure without complication. Her post operative course was uneventful. She is tolerating regular diet, ambulating and voiding without difficulty. Her pain was well-controlled with [place] and Motrin. She'll be discharged home post operative day #2 in stable condition to follow-up with Dr. Mukherjee in one week. Plan - Discharge Summary Discharge Rx Participant: No New Discharge Prescriptions: New Ibuprofen [Motrin] 600 mg PO Q6HR PRN #60 tab PRN Reason: Mild Pain Or Fever >= 100.5 HYDROcodone/APAP 5-325MG [[place] 5-325] 1 - 2 each PO Q6HR PRN #30 tab PRN Reason: SEVERE Pain Continue Pedi Multivit No.25/Folic Acid [[place] Multivit Chew Tab] 600 mcg PO DAILY Loratadine [Claritin] 10 mg PO DAILY Discharge Medication List Pedi Multivit No.25/Folic Acid [[place] Multivit Chew Tab] 600 mcg PO DAILY 01/11/17 [History] Loratadine [Claritin] 10 mg PO DAILY 05/27/17 [History] Ibuprofen [Motrin] 600 mg PO Q6HR PRN #60 tab 08/17/17 [Rx] HYDROcodone/APAP 5-325MG [[place] 5-325] 1 - 2 each PO Q6HR PRN #30 tab 08/18/17 [ Rx] Follow up Appointment(s)/Referral(s): Daniela Mukherjee DO [Doctor of Osteopathic Medicine] - 1 Week Activity/Diet/Wound Care/Special Instructions: Instructions 1. Do not begin any exercise program for 3 weeks. 2. Do not resume sexual relations for 3 weeks or longer if uncomfortable. 3. You may take tub baths or showers at any time. 4. You may use tampons if desired after 3 weeks. 5. Keep the area of episiotomy (stitches) clean and dry. 6. If you are not nursing, wear a good fitting, supportive bra during the day and limit fluid intake for at least 1 week to prevent breast engorgement. 7. Call the office, [phone], within the next week to make appointment for your 6 week checkup if it has not already been made. 8. Report any of the following occurrences to the doctor promptly: a. Heavy, excessive bleeding b. Chills, fever c. Burning or frequency of urination d. Pain or redness and breasts if nursing e. Increasing pain or swelling in episiotomy (stitches). In addition to the above instructions, the following additional should be followed: 1. No heavy lifting or straining (exercising) until after 6 week checkup. 2. Keep abdominal incision clean and dry: You may wear a dressing if more comfortable. 3. Make office appointment for 10 days after going home or as instructed by her doctor. Discharge Disposition: HOME SELF-CARE
== END 2017-08-18 12:15 | disposition home or self-care (01) | DRG 766 ==
LOC: 4FBP 10:05
PROVIDERS: ADMIT Obstetrics & Gynecology; ATTEND Obstetrics & Gynecology
PROC: 0UB70ZZ Excision of Bilateral Fallopian Tubes, Open Approach (ICD-10-PCS; 2017-08-16)
PROC: 10D00Z1 Extraction of Products of Conception, Low, Open Approach (ICD-10-PCS; principal; 2017-08-16 12:00)
DX: O34.211 Maternal care for low transverse scar from previous cesarean delivery (principal); J45.909 Unspecified asthma, uncomplicated; Z37.0 Single live birth; O99.52 Diseases of the respiratory system complicating childbirth; Z3A.39 39 weeks gestation of pregnancy; O69.81X0 Labor and delivery complicated by cord around neck, without compression, not applicable or unspecified; Z30.2 Encounter for sterilization
CPT/HCPCS: 85025; 86850; 86900; 86901; 88302; 88307; 90707

== ENCOUNTER 2018-05-13 20:25 | Emergency (ER) | payer BC ==
[2018-05-13 20:34] VITALS: TEMP 97.9
[2018-05-13] MEDS ORDERED: KETOROLAC 30 MG/ML 1 ML VIAL IM STA (21:02)
[2018-05-13] MEDS ORDERED: HYDROcodone/APAP 5-325MG 1 EACH TAB PO STA (21:02)
[2018-05-13] MEDS ORDERED: IBUPROFEN 600 MG TAB PO STA (21:02)
--- NOTE | 2018-05-13 21:12 | ED ---
General Adult HPI - General Source: patient, RN notes reviewed Mode of arrival: ambulatory Limitations: no limitations <Zev Carlos P - Last Filed: 05/13/18 22:10> <Martha Bronson P - Last Filed: 05/13/18 23:54> - General Chief complaint: Extremity Injury, Lower Stated complaint: R Knee pain Time Seen by Provider: 05/13/18 20:37 - History of Present Illness Initial comments: 27-year-old female presents to the emergency department for a chief complaint of right knee pain 1 hour. Patient states she was stepping over a baby gate and when she lifted her foot she felt a pop in the back of her knee. She states she has had pain since that time and has been unable to bear weight on the right leg. Patient states she used crutches at home to get to the hospital. Patient denies this ever happening previously. Patient has no other complaints at this time including shortness of breath, chest pain, abdominal pain, nausea or vomiting, headache, or visual changes. (Zev Carlos) - Related Data Home Medications Medication Instructions Recorded Confirmed Pedi Multivit No.25/Folic Acid 600 mcg PO DAILY 01/11/17 05/27/17 [Fl[place]stones Multivit Chew Tab] Loratadine [Claritin] 10 mg PO DAILY 05/27/17 05/27/17 Previous Rx's Medication Instructions Recorded Ibuprofen [Motrin] 600 mg PO Q6HR PRN #60 tab 08/17/17 HYDROcodone/APAP 5-325MG [[place] 1 - 2 each PO Q6HR PRN #30 tab 08/18/17 5-325] Allergies Allergy/AdvReac Type Severity Reaction Status Date / Time No Known Allergies Allergy Verified 05/13/18 20:34 Review of Systems ROS Other: All systems not noted in ROS Statement are negative. <Zev Carlos P - Last Filed: 05/13/18 22:10> ROS Other: All systems not noted in ROS Statement are negative. <Martha Bronson P - Last Filed: 05/13/18 23:54> ROS Statement: Those systems with pertinent positive or pertinent negative responses have been documented in the HPI. Past Medical History Past Medical History: Asthma Additional Past Medical History / Comment(s): migraines History of Any Multi-Drug Resistant Organisms: None Reported Past Surgical History: Section Past Anesthesia/Blood Transfusion Reactions: No Reported Reaction Past Psychological History: Anxiety, Bipolar Smoking Status: Current every day smoker Past Alcohol Use History: None Reported Past Drug Use History: None Reported - Past Family History Mother Family Medical History: Thyroid Disorder Additional Family Medical History / Comment(s): graves disease <Zev Carlos P - Last Filed: 05/13/18 22:10> General Exam Limitations: no limitations General appearance: alert, in no apparent distress Head exam: Present: atraumatic, normocephalic, normal inspection Eye exam: Present: normal appearance, PERRL, EOMI. Absent: scleral icterus, conjunctival injection, periorbital swelling ENT exam: Present: normal exam, mucous membranes moist Neck exam: Present: normal inspection, full ROM. Absent: tenderness, meningismus, lymphadenopathy Respiratory exam: Present: normal lung sounds bilaterally. Absent: respiratory distress, wheezes, rales, rhonchi, stridor Cardiovascular Exam: Present: regular rate, normal rhythm, normal heart sounds. Absent: systolic murmur, diastolic murmur, rubs, gallop, clicks Extremities exam: Present: tenderness (Tenderness noted to the generalized right knee including the anterior and posterior aspect.), normal capillary refill (Laboratory refill less than 2 seconds and DP pulse 2+ the right lower extremity), other (Sensation intact in the right lower extremity). Absent: full ROM (Patient has decreased flexion of the right knee with full extension), joint swelling (No significant edema or erythema noted of the right knee joint.) , calf tenderness (No significant tenderness in the calf of the right lower extremity. No erythema, edema, warmth noted) Neurological exam: Present: alert, oriented X3, CN II-XII intact Psychiatric exam: Present: normal affect, normal mood <Zev Carlos P - Last Filed: 05/13/18 22:10> Vital Signs 05/13/18 05/13/18 20:31 22:04 Temperature 97.9 F Pulse Rate 91 72 Respiratory 18 16 Rate Blood Pressure 126/74 125/64 O2 Sat by Pulse 98 99 Oximetry Medical Decision Making <Zev Carlos P - Last Filed: 05/13/18 22:10> <Martha Bronson P - Last Filed: 05/13/18 23:54> - Medical Decision Making 27-year-old female presents for right knee pain 1 hour. Patient lifted her right knee to step over the counter when she felt a pop in the posterior right knee. Patient is not able to ambulate on the right knee. No significant edema noted on the right knee. Neurovascular intact in the right lower extremity. X- ray of the right knee shows a negative exam, no sign of effusion. Patient given pain medication, feeling better at this time. Patient was put in a knee immobilizer. Patient has crutches in the emergency department. Educated on non -weight bearing ambulation. Educated on rice therapy. Given referral to orthopedics. Patient will return if she has any worsening symptoms. (Zev Carlos) I was available for consultation in the emergency department. The history and physical exam were done by the midlevel provider. I was consulted for this patient's care. I reviewed the case with the midlevel provider and based on their presentation of the patient, I agree with the assessment, medical decision making and plan of care as documented. (Martha Bronson) Disposition Is patient prescribed a controlled substance at d/c from ED?: No Time of Disposition: 22:10 <Zev Carlos P - Last Filed: 05/13/18 22:10> <Martha Bronson - Last Filed: 05/13/18 23:54> Clinical Impression: Knee pain, right Disposition: HOME SELF-CARE Condition: Good Instructions: Knee Pain (ED), R.I.C.E. Treatment (ED) Additional Instructions: Please rest ice and elevate the right knee. Use crutches. Use knee immobilizer and please see orthopedics. Follow-up with orthopedics in one to 2 days. Return if you have any worsening symptoms. Referrals: Mic Gross MD [Primary Care Provider] - 1-2 days Asael Gaitan MD [STAFF PHYSICIAN] - 1-2 days
--- NOTE | 2018-05-13 21:35 | XR ---
EXAMINATION TYPE: XR knee complete RT DATE OF EXAM: 05/13/2018 COMPARISON: NONE HISTORY: Knee pain TECHNIQUE: 3 views FINDINGS: I see no fracture nor dislocation. Joint spaces are normal. There is no sign of a knee join t effusion. IMPRESSION: Negative right knee exam.
[2018-05-13 22:05] VITALS: BP 125/64; PULSE 72; RESP 16
== END 2018-05-13 22:12 | disposition home or self-care (01) ==
LOC: EC 20:25
DX: M25.561 Pain in right knee (principal); F17.200 Nicotine dependence, unspecified, uncomplicated; Z79.899 Other long term (current) drug therapy; X50.9XXA Other and unspecified overexertion or strenuous movements or postures, initial encounter; Y92.009 Unspecified place in unspecified non-institutional (private) residence as the place of occurrence of the external cause
CPT/HCPCS: 73562; 99283; J1885

== ENCOUNTER 2018-09-25 10:10 | Emergency (ER) | payer BC ==
[2018-09-25] MEDS ORDERED: SODIUM CHLORIDE 0.9% 1,000 ML IV STA (10:39)
[2018-09-25] MEDS ORDERED: METOCLOPRAMIDE 5 MG/ML 2 ML VIAL IVP STA ×2 (10:39→13:08)
--- NOTE | 2018-09-25 10:46 | ED ---
General Adult HPI - General Chief complaint: Headache Stated complaint: greer Time Seen by Provider: 09/25/18 10:28 Source: patient, family, RN notes reviewed Mode of arrival: ambulatory Limitations: no limitations - History of Present Illness Initial comments: Patient is a pleasant 28-year-old female presenting to the emergency department with mother for headache. Headache has been present for the past 3 weeks. Headache is somewhat waxing and waning between moderate and severe. Headache was not sudden onset. Patient has some occasional minimal nausea and minimal photophobia. Patient has been on control for the past month. Patient does have history of chronic headaches similar to this however this is somewhat worse than normal and lasting somewhat longer. Patient has had previous head CT. Patient states she does have some increased fatigue however this is chronic. Patient does have chronic back problems. - Related Data Home Medications Medication Instructions Recorded Confirmed Acetaminophen/Pamabrom [Midol 1 tab PO Q6H PRN 09/25/18 09/25/18 Caplet] Advil Migraine 1 tab PO Q12H PRN 09/25/18 09/25/18 Cholecalciferol [Vitamin D3 (25 1,000 unit PO DAILY 09/25/18 09/25/18 Mcg = 1000 Iu)] Isibloom Control 1 tab PO DIRECTED 09/25/18 09/25/18 L.acidoph,Paracasei, B.lactis 1 cap PO DAILY 09/25/18 09/25/18 [Probiotic] Vitamin B Complex 1 cap PO DAILY 09/25/18 09/25/18 Previous Rx's Medication Instructions Recorded Metoclopramide HCl [Reglan] 10 mg PO Q6HR PRN #15 tablet 09/25/18 Allergies Allergy/AdvReac Type Severity Reaction Status Date / Time No Known Allergies Allergy Verified 09/25/18 10:28 Review of Systems ROS Statement: Those systems with pertinent positive or pertinent negative responses have been documented in the HPI. ROS Other: All systems not noted in ROS Statement are negative. Constitutional: Denies: fever Eyes: Denies: eye pain ENT: Denies: ear pain Respiratory: Denies: cough, dyspnea Cardiovascular: Denies: chest pain Endocrine: Reports: fatigue Gastrointestinal: Denies: abdominal pain Genitourinary: Denies: dysuria Musculoskeletal: Reports: as per HPI Skin: Denies: rash Neurological: Reports: headache. Denies: weakness, numbness, paresthesias, confusion Past Medical History Past Medical History: Asthma Additional Past Medical History / Comment(s): migraines History of Any Multi-Drug Resistant Organisms: None Reported Past Surgical History: Section, Tubal Ligation Past Anesthesia/Blood Transfusion Reactions: No Reported Reaction Past Psychological History: Anxiety, Bipolar Smoking Status: Current every day smoker Past Alcohol Use History: None Reported Past Drug Use History: None Reported - Past Family History Mother Family Medical History: Thyroid Disorder Additional Family Medical History / Comment(s): graves disease General Exam Limitations: no limitations General appearance: alert, in no apparent distress Head exam: Present: atraumatic, normocephalic Eye exam: Present: normal appearance, PERRL, EOMI. Absent: nystagmus ENT exam: Present: normal oropharynx Neck exam: Present: normal inspection Respiratory exam: Present: normal lung sounds bilaterally Cardiovascular Exam: Present: regular rate, normal rhythm GI/Abdominal exam: Present: soft. Absent: tenderness Extremities exam: Present: normal inspection, full ROM Neurological exam: Present: alert, oriented X3, CN II-XII intact. Absent: motor sensory deficit Expanded Neurological exam: Present: protecting the airway Patient oriented to: Present: person Speech: Present: fluid speech Cranial nerves: EOM's Intact: Normal, Facial Sensation: Normal Cerebellar function: Finger to Nose: Normal Sensory exam: Upper Extremity Light Touch: Normal, Lower Extremity Light Touch: Normal Motor strength exam: RUE: 5, LUE: 5, RLE: 5, LLE: 5 Eye Response: (4) open spontaneously Motor Response: (6) obeys commands Verbal Response: (5) oriented Psychiatric exam: Present: normal affect, normal mood Skin exam: Present: normal color Course Vital Signs 09/25/18 10:13 Temperature 98.9 F Pulse Rate 78 Respiratory 16 Rate Blood Pressure 123/79 O2 Sat by Pulse 100 Oximetry Medical Decision Making - Medical Decision Making Patient reevaluated and resting comfortably in bed. Patient states discomfort has decreased to 3/10. Patient and family updated on results and need for follow-up. Mother does request prescription for Reglan to go home with. - Lab Data Result diagrams: 09/25/18 12:05 09/25/18 12:05 Lab Results 09/25/18 09/25/18 09/25/18 Range/Units 11:15 12:05 12:05 WBC 11.3 H (3.8-10.6) k/uL RBC 4.55 (3.80-5.40) m/uL Hgb 13.2 (11.4-16.0) gm/dL Hct 39.9 (34.0-46.0) % MCV 87.7 (80.0-100.0) fL MCH 29.0 (25.0-35.0) pg MCHC 33.1 (31.0-37.0) g/dL RDW 13.1 (11.5-15.5) % Plt Count 400 (150-450) k/uL Neutrophils % 60 % Lymphocytes % 34 % Monocytes % 4 % Eosinophils % 1 % Basophils % 0 % Neutrophils # 6.7 (1.3-7.7) k/uL Lymphocytes # 3.8 (1.0-4.8) k/uL Monocytes # 0.4 (0-1.0) k/uL Eosinophils # 0.1 (0-0.7) k/uL Basophils # 0.0 (0-0.2) k/uL PT (9.0-12.0) sec INR (<1.2) APTT (22.0-30.0) sec Sodium 142 (137-145) mmol/L Potassium 4.0 (3.5-5.1) mmol/L Chloride 106 (98-107) mmol/L Carbon Dioxide 26 (22-30) mmol/L Anion Gap 10 mmol/L BUN 8 (7-17) mg/dL Creatinine 0.63 (0.52-1.04) mg/dL Est GFR (CKD-EPI)AfAm >90 (>60 ml/min/1.73 sqM) Est GFR (CKD-EPI)NonAf >90 (>60 ml/min/1.73 sqM) Glucose 112 H (74-99) mg/dL Calcium 9.7 (8.4-10.2) mg/dL Total Bilirubin 0.3 (0.2-1.3) mg/dL AST 25 (14-36) U/L ALT 43 (9-52) U/L Alkaline Phosphatase 78 (38-126) U/L Total Protein 7.6 (6.3-8.2) g/dL Albumin 4.6 (3.5-5.0) g/dL TSH 5.970 H (0.465-4.680) mIU/L Free T4 0.76 L (0.78-2.19) ng/dL Free T3 pg/mL 3.7 (2.8-5.3) pg/ml Urine Color Light Yellow Urine Appearance Clear (Clear) Urine pH 6.0 (5.0-8.0) Ur Specific [place] 1.008 (1.001-1.035) Urine Protein Negative (Negative) Urine Glucose (UA) Negative (Negative) Urine Ketones Negative (Negative) Urine Blood Moderate H (Negative) Urine Nitrite Negative (Negative) Urine Bilirubin Negative (Negative) Urine Urobilinogen <2.0 (<2.0) mg/dL Ur Leukocyte Esterase Negative (Negative) Urine RBC <1 (0-5) /hpf Urine WBC 1 (0-5) /hpf Ur Squamous Epith Cells 1 (0-4) /hpf Urine Mucus Rare H (None) /hpf 09/25/18 Range/Units 12:05 WBC (3.8-10.6) k/uL RBC (3.80-5.40) m/uL Hgb (11.4-16.0) gm/dL Hct (34.0-46.0) % MCV (80.0-100.0) fL MCH (25.0-35.0) pg MCHC (31.0-37.0) g/dL RDW (11.5-15.5) % Plt Count (150-450) k/uL Neutrophils % % Lymphocytes % % Monocytes % % Eosinophils % % Basophils % % Neutrophils # (1.3-7.7) k/uL Lymphocytes # (1.0-4.8) k/uL Monocytes # (0-1.0) k/uL Eosinophils # (0-0.7) k/uL Basophils # (0-0.2) k/uL PT 10.1 (9.0-12.0) sec INR 0.9 (<1.2) APTT 19.9 L (22.0-30.0) sec Sodium (137-145) mmol/L Potassium (3.5-5.1) mmol/L Chloride (98-107) mmol/L Carbon Dioxide (22-30) mmol/L Anion Gap mmol/L BUN (7-17) mg/dL Creatinine (0.52-1.04) mg/dL Est GFR (CKD-EPI)AfAm (>60 ml/min/1.73 sqM) Est GFR (CKD-EPI)NonAf (>60 ml/min/1.73 sqM) Glucose (74-99) mg/dL Calcium (8.4-10.2) mg/dL Total Bilirubin (0.2-1.3) mg/dL AST (14-36) U/L ALT (9-52) U/L Alkaline Phosphatase (38-126) U/L Total Protein (6.3-8.2) g/dL Albumin (3.5-5.0) g/dL TSH (0.465-4.680) mIU/L Free T4 (0.78-2.19) ng/dL Free T3 pg/mL (2.8-5.3) pg/ml Urine Color Urine Appearance (Clear) Urine pH (5.0-8.0) Ur Specific [place] (1.001-1.035) Urine Protein (Negative) Urine Glucose (UA) (Negative) Urine Ketones (Negative) Urine Blood (Negative) Urine Nitrite (Negative) Urine Bilirubin (Negative) Urine Urobilinogen (<2.0) mg/dL Ur Leukocyte Esterase (Negative) Urine RBC (0-5) /hpf Urine WBC (0-5) /hpf Ur Squamous Epith Cells (0-4) /hpf Urine Mucus (None) /hpf - Radiology Data Radiology results: report reviewed (Computed tomography scan with venogram done reveals no acute process. No sinus thrombosis.) Disposition Clinical Impression: Headache Disposition: HOME SELF-CARE Condition: Stable Instructions (If sedation given, give patient instructions): Acute Headache (ED) Additional Instructions: Please follow-up with primary care physician in the next day or 2 for recheck. Return for confusion, weakness, fevers, difficulty walking or with coordination, worsening symptoms or any other concerns. Prescriptions: Metoclopramide HCl [Reglan] 10 mg PO Q6HR PRN #15 tablet PRN Reason: Nausea Is patient prescribed a controlled substance at d/c from ED?: No Referrals: Mic Gross MD [Primary Care Provider] - 1-2 days Time of Disposition: 14:23
[2018-09-25 12:00] LABS: Appearance,Urine Clear (Clear); Bilirubin,Urine Negative (Negative); Blood,Urine Moderate (Negative); Color,Urine Light Yellow; Glucose,Urine (UA) Negative (Negative); Ketones,Urine Negative (Negative); Leukocyte Esterase,Urine Negative (Negative); Mucus,Urine Rare /hpf; Nitrite,Urine Negative (Negative); Protein,Urine Negative (Negative); RBC,Urine <1 /hpf (0-5); Specific Gravity,Urine 1.008 (1.001-1.035); Squamous Epithelial Cell,Urine 1 /hpf (0-4); Urobilinogen,Urine <2.0 mg/dL (<2.0); WBC,Urine 1 /hpf (0-5)
[2018-09-25 12:27] LABS: Basophils % (A) 0 %; Eosinophils # (A) 0.1 k/uL (0-0.7); Eosinophils % (A) 1 %; HCT 39.9 % (34.0-46.0); HGB 13.2 gm/dL (11.4-16.0); Lymphocytes # (A) 3.8 k/uL (1.0-4.8); Lymphocytes % (A) 34 %; MCHC 33.1 g/dL (31.0-37.0); MCV 87.7 fL (80.0-100.0); Mean Platelet Volume 6.7; Monocytes # (A) 0.4 k/uL (0-1.0); Monocytes % (A) 4 %; Neutrophils # (A) 6.7 k/uL (1.3-7.7); Neutrophils % (A) 60 %; Platelet Count 400 k/uL (150-450); RBC 4.55 m/uL (3.80-5.40); RDW 13.1 % (11.5-15.5); WBC 11.3 k/uL (3.8-10.6)
[2018-09-25 12:33] LABS: ALT 43 U/L (9-52); AST 25 U/L (14-36); Albumin 4.6 g/dL (3.5-5.0); Alkaline Phosphatase 78 U/L (38-126); Anion Gap 10 mmol/L; Blood Urea Nitrogen 8 mg/dL (7-17); Calcium 9.7 mg/dL (8.4-10.2); Carbon Dioxide 26 mmol/L (22-30); Chloride 106 mmol/L (98-107); Glucose 112 mg/dL (74-99); Sodium 142 mmol/L (137-145); Total Bilirubin 0.3 mg/dL (0.2-1.3); Total Protein 7.6 g/dL (6.3-8.2)
[2018-09-25 12:50] LABS: INR 0.9 (<1.2); Prothrombin Time 10.1 sec (9.0-12.0); T4, Free (Free Thyroxine) 0.76 ng/dL (0.78-2.19)
[2018-09-25 13:13] LABS: Partial Thromboplastin Time 19.9 sec (22.0-30.0)
--- NOTE | 2018-09-25 13:24 | CT ---
EXAMINATION TYPE: CT angio head DATE OF EXAM: 09/25/2018 1:04 PM COMPARISON: None HISTORY: [place] with hypertension CT DLP: 1260.4 mGycm Automated exposure control for dose reduction was used. TECHNIQUE: Performed with IV Contrast, patient injected with 100 mL of Isovue 370. Tiny was performed for evaluation of the venous cerebral system.. FINDINGS: Arterial and venous structures within the brain are opacified. There appears be normal opacification of the venous structures as visualized. No filling defects are evident. Three-D reconstructed images are performed. The venous structures as visualized appear normal. Source images are reviewed. Arterial and venous structures appear without abrupt cut off. Sagittal si nus, straight sinus, sigmoid sinuses appear normal. No filling defects are identified. Brain windows are reviewed. No suspicious areas for infarct are evident. Brain density appears approp riate. Torres-white matter differentiation appears normal. No mass effect is evident. Ventricles and s ulci are appropriate for the patient age. IMPRESSION: 1. NO SUSPICIOUS ACUTE VENOUS THROMBOSIS OR ABNORMALITY. 2. CONTRAST CT BRAIN APPEARS NORMAL.
[2018-09-25 14:33] VITALS: BP 116/77; PULSE 69; RESP 18; TEMP 98.5
== END 2018-09-25 14:39 | disposition home or self-care (01) ==
LOC: EC 10:10
DX: R51 Headache (principal); R11.0 Nausea; H53.149 Visual discomfort, unspecified; R53.82 Chronic fatigue, unspecified; F17.200 Nicotine dependence, unspecified, uncomplicated; Z79.3 Long term (current) use of hormonal contraceptives; Z86.69 Personal history of other diseases of the nervous system and sense organs; Z53.20 Procedure and treatment not carried out because of patient's decision for unspecified reasons
CPT/HCPCS: 36415; 84439; 84481; 80053; 84443; 85025; 85610; 85730; 81001; 70496; 99284; 96374; 96361 ×2; J2765; Q9967

== ENCOUNTER 2019-05-18 17:41 | Observation (INO) | payer BC ==
[2019-05-18] MEDS ORDERED: ASPIRIN 81 MG PO STA (18:25)
--- NOTE | 2019-05-18 18:28 | ED ---
General Adult HPI - General Chief complaint: Chest Pain Stated complaint: left arm & jaw pain Time Seen by Provider: 05/18/19 17:49 Source: patient Mode of arrival: ambulatory Limitations: no limitations - History of Present Illness Initial comments: Dictation was produced using [employer] dictation software. please excuse any grammatical, word or spelling errors. Chief Complaint: 28-year-old female presents with chief complaint chest pain. History of Present Illness: 28-year-old female. She presents today with chief complaint of chest pain. She reports that over the last 3 days she's been having on and off chest pain symptoms. She states that it's a squeezing sharp pressure behind her breast bone. She states the pain lasts anywhere from several seconds to several minutes. They occur spontaneously and resolved spontaneously. She denies any exacerbating or mitigating factors. No cough. She denies pain being positional. States that the pain radiates to her left upper extremity causes her to feel slightly nauseous and a little diaphoretic. She reports that her mother had heart attack at a young age. Patient denies any tobacco abuse. The ROS documented in this emergency department record has been reviewed and con firmed by me. Those systems with pertinent positive or negative responses have been documented in the HPI. All other systems are other negative and/or noncontributory. PHYSICAL EXAM: General Impression: Alert and oriented x3, not in acute distress HEENT: Normocephalic atraumatic, extra-ocular movements intact, pupils equal and reactive to light bilaterally, mucous membranes moist. Cardiovascular: Heart regular rate and rhythm, S1&S2 audible, no murmurs, rubs or gallops Chest: Lungs clear to auscultation bilaterally, no rhonchi, no wheeze, no rales Abdomen: Bowel sounds present, abdomen soft, non-tender, non-distended, no organomegaly Musculoskeletal: Pulses present and equal in all extremities, no peripheral edema Motor: no focal deficits noted Neurological: CN II-XII grossly intact, no focal motor or sensory deficits noted Skin: Intact with no visualized rashes Psych: Normal affect and mood ED course: 28-year-old female presents with chest pain. Signs upon arrival are within acceptable limits. Patient's well-appearing at bedside. Patient's symptoms as explained by her sounds rather atypical however she is well- appearing at bedside currently. Patient also reports that her mother had coronary artery disease requiring stent placement at a young age. There is concern that patient has significant risk factors. EKGs benign showing no signs of ischemia or infarction. Laboratory evaluation obtained. Patient is leukocytosis of 14.3. This appears to be her baseline. Coag panel unremarkable. Metabolic panel is negative. Troponin is negative. TSH is 6.170. TSH level was ordered per request by patient. Urine hCG is negative. Chest x-ray is nonacute. Patient's well- appearing and in no acute distress. Disposition options were discussed with patient. She requested that she be admitted to observation overnight for suture troponins and cardiology consultation. She was given aspirin. Patient will be admitted to Dr. Ibrahim's service. EKG interpretation: Ventricular rate 86, normal sinus rhythm, ME interval 126, care 78, QTC 428. No ME prolongation, no QTC prolongation, no ST or T-wave changes noted. . Overall, this EKG is unremarkable - Related Data Home Medications Medication Instructions Recorded Confirmed Acetaminophen/Pamabrom [Midol 1 tab PO Q6H PRN 09/25/18 09/25/18 Caplet] Advil Migraine 1 tab PO Q12H PRN 09/25/18 09/25/18 Cholecalciferol [Vitamin D3 (25 1,000 unit PO DAILY 09/25/18 09/25/18 Mcg = 1000 Iu)] Isibloom Control 1 tab PO DIRECTED 09/25/18 09/25/18 L.acidoph,Paracasei, B.lactis 1 cap PO DAILY 09/25/18 09/25/18 [Probiotic] Vitamin B Complex 1 cap PO DAILY 09/25/18 09/25/18 Previous Rx's Medication Instructions Recorded Metoclopramide HCl [Reglan] 10 mg PO Q6HR PRN #15 tablet 09/25/18 Allergies Allergy/AdvReac Type Severity Reaction Status Date / Time No Known Allergies Allergy Verified 09/25/18 10:28 Review of Systems ROS Statement: Those systems with pertinent positive or pertinent negative responses have been documented in the HPI. ROS Other: All systems not noted in ROS Statement are negative. Past Medical History Past Medical History: Asthma Additional Past Medical History / Comment(s): migraines History of Any Multi-Drug Resistant Organisms: None Reported Past Surgical History: Section, Tubal Ligation Past Anesthesia/Blood Transfusion Reactions: No Reported Reaction Past Psychological History: Anxiety, Bipolar Smoking Status: Current every day smoker Past Alcohol Use History: None Reported Past Drug Use History: Marijuana - Past Family History Mother Family Medical History: Thyroid Disorder Additional Family Medical History / Comment(s): graves disease General Exam Limitations: no limitations Course Vital Signs 05/18/19 05/18/19 17:49 18:03 Temperature 98.7 F Pulse Rate 93 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9 H (1.3-7.7) k/uL Lymphocytes # 5.3 H (1.0-4.8) k/uL Monocytes # 0.5 (0-1.0) k/uL Eosinophils # 0.2 (0-0.7) k/uL Basophils # 0.1 (0-0.2) k/uL PT 9.8 (9.0-12.0) sec INR 0.9 (<1.2) APTT 22.4 (22.0-30.0) sec Sodium 140 (137-145) mmol/L Potassium 4.1 (3.5-5.1) mmol/L Chloride 104 (98-107) mmol/L Carbon Dioxide 26 (22-30) mmol/L Anion Gap 10 mmol/L BUN 13 (7-17) mg/dL Creatinine 0.61 (0.52-1.04) mg/dL Est GFR (CKD-EPI)AfAm >90 (>60 ml/min/1.73 sqM) Est GFR (CKD-EPI)NonAf >90 (>60 ml/min/1.73 sqM) Glucose 88 (74-99) mg/dL Calcium 9.4 (8.4-10.2) mg/dL Magnesium 1.8 (1.6-2.3) mg/dL Total Bilirubin 0.3 (0.2-1.3) mg/dL AST 19 (14-36) U/L ALT 12 (4-34) U/L Alkaline Phosphatase 78 (38-126) U/L Troponin I (0.000-0.034) ng/mL Total Protein 7.8 (6.3-8.2) g/dL Albumin 4.5 (3.5-5.0) g/dL TSH 6.170 H (0.465-4.680) mIU/L Urine HCG, Qual (Not Detectd) 05/18/19 05/18/19 Range/Units 18:13 18:15 WBC (3.8-10.6) k/uL RBC (3.80-5.40) m/uL Hgb (11.4-16.0) gm/dL Hct (34.0-46.0) % MCV (80.0-100.0) fL MCH (25.0-35.0) pg MCHC (31.0-37.0) g/dL RDW (11.5-15.5) % Plt Count (150-450) k/uL Neutrophils % % Lymphocytes % % Monocytes % % Eosinophils % % Basophils % % Neutrophils # (1.3-7.7) k/uL Lymphocytes # (1.0-4.8) k/uL Monocytes # (0-1.0) k/uL Eosinophils # (0-0.7) k/uL Basophils # (0-0.2) k/uL PT (9.0-12.0) sec INR (<1.2) APTT (22.0-30.0) sec Sodium (137-145) mmol/L Potassium (3.5-5.1) mmol/L Chloride (98-107) mmol/L Carbon Dioxide (22-30) mmol/L Anion Gap mmol/L BUN (7-17) mg/dL Creatinine (0.52-1.04) mg/dL Est GFR (CKD-EPI)AfAm (>60 ml/min/1.73 sqM) Est GFR (CKD-EPI)NonAf (>60 ml/min/1.73 sqM) Glucose (74-99) mg/dL Calcium (8.4-10.2) mg/dL Magnesium (1.6-2.3) mg/dL Total Bilirubin (0.2-1.3) mg/dL AST (14-36) U/L ALT (4-34) U/L Alkaline Phosphatase (38-126) U/L Troponin I <0.012 (0.000-0.034) ng/mL Total Protein (6.3-8.2) g/dL Albumin (3.5-5.0) g/dL TSH (0.465-4.680) mIU/L Urine HCG, Qual Not Detected (Not Detectd) Disposition Clinical Impression: Chest pain Disposition: [facility] Condition: Fair Referrals: Mic Gross MD [Primary Care Provider] - 1-2 days Decision Time: 19:49
[2019-05-18 18:40] LABS: Basophils # (A) 0.1 k/uL (0-0.2); Basophils % (A) 1 %; Eosinophils # (A) 0.2 k/uL (0-0.7); Eosinophils % (A) 1 %; HCT 38.4 % (34.0-46.0); HGB 12.9 gm/dL (11.4-16.0); Lymphocytes # (A) 5.3 k/uL (1.0-4.8); Lymphocytes % (A) 37 %; MCH 29.7 pg (25.0-35.0); MCHC 33.5 g/dL (31.0-37.0); MCV 88.5 fL (80.0-100.0); Monocytes # (A) 0.5 k/uL (0-1.0); Monocytes % (A) 4 %; Neutrophils # (A) 7.9 k/uL (1.3-7.7); Neutrophils % (A) 55 %; Platelet Count 430 k/uL (150-450); RBC 4.34 m/uL (3.80-5.40); RDW 12.1 % (11.5-15.5); WBC 14.3 k/uL (3.8-10.6)
[2019-05-18 18:54] LABS: INR 0.9 (<1.2); Partial Thromboplastin Time 22.4 sec (22.0-30.0); Prothrombin Time 9.8 sec (9.0-12.0)
[2019-05-18 18:59] LABS: ALT 12 U/L (4-34); AST 19 U/L (14-36); African American GFR (CKD) >90 (>60 ml/min/1.73 sqM); Albumin 4.5 g/dL (3.5-5.0); Alkaline Phosphatase 78 U/L (38-126); Anion Gap 10 mmol/L; Blood Urea Nitrogen 13 mg/dL (7-17); Calcium 9.4 mg/dL (8.4-10.2); Carbon Dioxide 26 mmol/L (22-30); Chloride 104 mmol/L (98-107); Glucose 88 mg/dL (74-99); Magnesium 1.8 mg/dL (1.6-2.3); Non-African American GFR(CKD) >90 (>60 ml/min/1.73 sqM); Potassium 4.1 mmol/L (3.5-5.1); Sodium 140 mmol/L (137-145); Total Bilirubin 0.3 mg/dL (0.2-1.3); Total Protein 7.8 g/dL (6.3-8.2)
--- NOTE | 2019-05-18 18:59 | XR ---
EXAMINATION: XR chest 2V DATE AND TIME: 05/18/2019 6:39 PM CLINICAL INDICATION: PHH; Chest Pain TECHNIQUE: Departmental protocol COMPARISON: 01/19/2010 FINDINGS: The lungs are clear. The pleural spaces are negative. The cardiac silhouette is not enlarged. The remainder of the mediastinal silhouette is unremarkable. The skeletal structures and soft tissues are negative for acute findings. IMPRESSION: NO ACUTE PROCESS.
[2019-05-18 20:13] LABS: T4, Free (Free Thyroxine) 1.05 ng/dL (0.78-2.19)
[2019-05-19] MEDS: NITROGLYCERIN OINT 1 INCH/GM PACKET TOPICAL SCH ×2 (00:15→08:17)
[2019-05-19] MEDS: ACETAMINOPHEN TAB 500 MG TAB PO PRN ×2 (00:16→08:19)
[2019-05-19 07:04] LABS: Cholesterol 217 mg/dL (<200); HDL Cholesterol 51 mg/dL (40-60); LDL Cholesterol,Calculated 131 mg/dL (0-99); Triglycerides 173 mg/dL (<150)
[2019-05-19] MEDS ORDERED: ASPIRIN 325 MG TAB PO SCH (09:00)
--- NOTE | 2019-05-19 10:51 | CONS ---
CONSULTATION Ms. Ramos is a 28-year-old female who is seen for the cardiac evaluation. This patient came to the emergency room with a complaint of chest pain. Patient had a pain in the epigastric area radiating to the left shoulder. She has been having chest pain on and off for the last 3 days. Yesterday the pain lasted for almost the whole day. It was a sharp pain. Denied any nausea or vomiting. The pain was not related to exertion. Patient denies any history of exertional chest discomfort. Denies any history of gallstone or peptic ulcer disease. She is moderately active physically. PAST MEDICAL HISTORY: No history of any major surgeries. REVIEW OF THE SYSTEM: Unremarkable. PHYSICAL EXAMINATION: Physical examination at present reveals a 28-year-old female who does not appear to be in any acute distress. The patient's vital signs were stable in the emergency room. Head/ENT examination is negative. Neck is supple. There is no increase in jugular venous pressure. Both the carotid pulses are felt. There is no bruit. Chest is symmetrical. HEART: The PMI is not felt. First and second heart sounds are normal. There is no evidence of any murmur. Lungs are clinically clear to auscultation and percussion. Abdomen is negative. EXTREMITIES: Peripheral pulsations are 2+. EKG shows normal sinus rhythm without any acute ischemic changes. The patient's cardiac enzymes are normal. TSH is mildly elevated. Free T4 is normal. The patient's LDL level is 131. IMPRESSION: Atypical chest pain. EKGs and cardiac enzymes are normal. Mildly elevated TSH. We will do echocardiogram and stress echocardiographic study. MMODL / IJN: [id number] /
[2019-05-19 12:13] VITALS: BP 118/76; PULSE 91; RESP 18; TEMP 98.6
--- NOTE | 2019-05-19 12:43 | ECHOF ---
Referral Reason:chest pain MEASUREMENTS -------- HEIGHT: 160.0 cm WEIGHT: 90.7 kg BP: RVIDd: 2.9 cm (< 3.3) IVSd: 0.8 cm (0.6 - 1.1) LVIDd: 4.1 cm (3.9 - 5.3) LVPWd: 0.9 cm (0.6 - 1.1) IVSs: 1.4 cm LVIDs: 2.9 cm LVPWs: 1.6 cm LA Diam: 3.3 cm (2.7 - 3.8) Ao Diam: 2.8 cm (2.0 - 3.7) AV Cusp: 2.2 cm (1.5 - 2.6) MV EXCURSION: 18.221 mm (> 18.000) MV EF SLOPE: 147 mm/s (70 - 150) EPSS: 0.5 cm MV E Isidoro: 0.99 m/s MV DecT: 171 ms MV A Isidoro: 0.91 m/s MV E/A Ratio: 1.08 RAP: 5.00 mmHg RVSP: 28.81 mmHg FINDINGS -------- Sinus rhythm. This was a technically good study. The left ventricular size is normal. Left ventricular wall thickness is normal. Overall left vent ricular systolic function is normal with, an EF between 60 - 65 %. The right ventricle is normal in size. The left atrial size is normal. The right atrium is normal in size. Interatrial and interventricular septum intact. The aortic valve is trileaflet and appears structurally normal. The mitral valve is normal. Mild tricuspid regurgitation present. Right ventricular systolic pressure is normal at < 35 mmHg. Trace/mild (physiologic) pulmonic regurgitation. The aortic root size is normal. Normal inferior vena cava with normal inspiratory collapse consistent with estimated right atrial pre ssure of 5 mmHg. There is no pericardial effusion. CONCLUSIONS -------- 1. Sinus rhythm. 2. This was a technically good study. 3. The left ventricular size is normal. 4. Left ventricular wall thickness is normal. 5. Overall left ventricular systolic function is normal with, an EF between 60 - 65 %. 6. The right ventricle is normal in size. 7. The left atrial size is normal. 8. The right atrium is normal in size. 9. Interatrial and interventricular septum intact. 10. The aortic valve is trileaflet and appears structurally normal. 11. The mitral valve is normal. 12. Mild tricuspid regurgitation present. 13. Right ventricular systolic pressure is normal at < 35 mmHg. 14. Trace/mild (physiologic) pulmonic regurgitation. 15. The aortic root size is normal. 16. Normal inferior vena cava with normal inspiratory collapse consistent with estimated right atrial pressure of 5 mmHg. 17. There is no pericardial effusion. DIRECTOR OF TRAUMA: Tammy Cruz RDCS
--- NOTE | 2019-05-19 13:30 | ECHOS ---
STRESS ECHOCARDIOGRAM DATE OF SERVICE: 05/19/2019 INDICATIONS: Chest pain. MEDICATIONS: BASELINE HEART RATE: 68 BASELINE BLOOD PRESSURE: 140/60 MAXIMUM HEART RATE: 170 MAXIMUM BLOOD PRESSURE: 160/62 85% MPHR: 163 100% MPHR: 192 METS: 10.1 MAXIMUM STAGE REACHED: III TOTAL EXERCISE TIME: 8 minutes 30 seconds CLINICAL INFORMATION: Patient was exercised for a total period of 8 minutes and 30 seconds. A peak heart rate of 170, was achieved. Maximum blood pressure of 160/62 mmHg was noted. Resting EKG shows normal sinus rhythm with normal NV interval and QRS duration and normal ST-T waves. No ST-segment depression suggestive of ischemia is noted. The baseline echocardiographic images reveals normal left ventricular chamber size with normal left ventricular systolic function. In the immediate postexercise period, normal increase in the wall thickness and contractility is noted. FINAL IMPRESSION: 1. This stress echocardiographic study is negative for stress-induced ischemia. 2. Patient's exercise tolerance is average. 3. No dysrhythmias are noted. MMODL / IJN: [id number] /
--- NOTE | 2019-05-19 23:45 | P.HPIM ---
History of Present Illness H&P Date: 05/19/19 Chief Complaint: Shoulder. Pain History of presenting complaint: This is a pleasant [address] Gross. Chronic stable medical conditions include asthma, bipolar disorder, occasional migraines. Patient for 4 days has been having episodes where she describes a big burps. Off Unasyn the lower sternal epigastric area described as a fullness. Also noticed some left shoulder discomfort on and off a few days. No dizziness no perspiration or shortness of breath. Not really related to activity. Combination of the symptoms precipitated her coming to the ER.. No prior cardiac history. Review of systems: GEN.: None EYES: None HEENT: None NECK: None RESPIRATORY: None CARDIOVASCULAR: As above GASTROINTESTINAL: None GENITOURINARY: None MUSCULOSKELETAL: As above LYMPHATICS: None HEMATOLOGICAL: None PSYCHIATRY: None NEUROLOGICAL: None Past medical history to include: Asthma, bipolar, migraines Social history: , smokes 1-2 cigarettes a day, no alcohol. Employed. Physical examination: VITAL SIGNS: 98.2, 76, 16, 109/57, 96% on room air GENERAL: BMI 35.4, sitting up comfortable. EYES: Pupils equal. Conjunctiva normal. HEENT: External appearance of nose and ears normal, oral cavity grossly normal ears pierced. NECK: JVD not raised; masses not palpable. HEART: First and second heart sounds are normal; no edema. LUNGS: Respiratory rate normal; clear to auscultation. ABDOMEN: Soft, nontender, liver spleen not palpable, no masses palpable. PSYCH: Alert and oriented x3; mood and affect normal. NEUROLOGICAL: Cranial nerves grossly intact; no facial asymmetry, power and sensation grossly intact. LYMPHATICS: No lymph nodes palpable in the axilla and neck INVESTIGATIONS, reviewed in the clinical context: White count 14.3 hemoglobin 12.9 platelets 4:30 progression 4.1 and creatinine 0.61 Troponin I 3 negative TSH 6.170 LDL 131 EKG tracing personally reviewed by me-normal sinus rhythm Chest x-ray film personally reviewed by me-lungs are clear Assessment: -Anterior chest wall pain rather atypical, rule out cardiac cause -Intermittent asthma -Bipolar disorder -Occasional migraines -Obesity BMI 35.4 Plan: Presentation does not sound like cardiac. Rule out the same. Troponins are negative. Seen by cardiology. They ordered a stress echocardiogram. Past Medical History Past Medical History: Asthma Additional Past Medical History / Comment(s): migraines, BIPOLAR History of Any Multi-Drug Resistant Organisms: None Reported Past Surgical History: Section, Tubal Ligation Past Anesthesia/Blood Transfusion Reactions: No Reported Reaction Past Psychological History: Anxiety, Bipolar Smoking Status: Current every day smoker Past Alcohol Use History: None Reported Past Drug Use History: Marijuana - Past Family History Father Family Medical History: No Reported History Mother Family Medical History: Coronary Artery Disease (CAD), Thyroid Disorder Additional Family Medical History / Comment(s): graves disease Medications and Allergies Home Medications Medication Instructions Recorded Confirmed Type Cholecalciferol [Vitamin D3 (25 2,000 unit PO Q48H 09/25/18 05/19/19 History Mcg = 1000 Iu)] Norgestimate-Ethinyl Estradiol 1 tab PO HS 05/18/19 05/19/19 History [Ortho Tri-Cyclen Lo Tablet] Allergies Allergy/AdvReac Type Severity Reaction Status Date / Time No Known Allergies Allergy Verified 05/19/19 09:11 Physical Exam Vitals: Vital Signs Temp Pulse Pulse Pulse Resp BP BP 05/19/19 06:59 98.2 F 76 16 109/57 05/19/19 04:00 97.8 F 57 L 16 99/56 05/19/19 03:47 91 16 05/19/19 00:00 98.2 F 91 16 119/70 05/18/19 23:54 81 16 05/18/19 21:22 81 16 05/18/19 20:46 98.3 F 81 16 122/66 05/18/19 18:03 81 18 05/18/19 17:49 98.7 F 93 20 136/84 Pulse Ox 05/19/19 06:59 96 05/19/19 04:00 95 05/19/19 03:47 05/19/19 00:00 97 05/18/19 23:54 05/18/19 21:22 05/18/19 20:46 96 05/18/19 18:03 05/18/19 17:49 97 Intake and Output 05/18/19 05/19/19 05/19/19 22:59 06:59 14:59 Other: Voiding Method Toilet # Voids 1 Weight 90.718 kg Results CBC & Chem 7: 05/18/19 18:13 05/18/19 18:13 Labs: Abnormal Lab Results - Last 24 Hours (Table) 05/18/19 05/18/19 05/19/19 Range/Units 18:13 18:13 06:37 WBC 14.3 H (3.8-10.6) k/uL Neutrophils # 7.9 H (1.3-7.7) k/uL Lymphocytes # 5.3 H (1.0-4.8) k/uL Triglycerides 173 H (<150) mg/dL Cholesterol 217 H (<200) mg/dL LDL Cholesterol, Calc 131 H (0-99) mg/dL TSH 6.170 H (0.465-4.680) mIU/L Thrombosis Risk Factor Assmnt - Choose All That Apply Any of the Below Risk Factors Present?: Yes Each Factor Represents 1 point: Acute OR, Obesity (BMI >25), Oral contraceptives or hormone replacement therapy Other Risk Factors: No Other congenital or acquired thrombophilia - If yes, enter type in comment: No Thrombosis Risk Factor Assessment Total Risk Factor Score: 3 Thrombosis Risk Factor Assessment Level: Moderate Risk
--- NOTE | 2019-05-19 23:48 | P.DS ---
Providers Date of admission: 05/18/19 19:47 Expected date of discharge: 05/19/19 Attending physician: Adis Ibrahim Consults: 05/18/19 19:47 Consult Physician Urgent Consulting Provider: Cameron Asif Consult Reason/Comments: chest pain Do you want consulting provider notified?: Yes Primary care physician: Mic Gross [facility] Course: Chief Complaint: Shoulder. Pain Hospital course: This is a pleasant [address] Gross. Chronic stable medical conditions include asthma, bipolar disorder, occasional migraines. Patient for 4 days has been having episodes where she describes a big burps. Off Unasyn the lower sternal epigastric area described as a fullness. Also noticed some left shoulder discomfort on and off a few days. No dizziness no perspiration or shortness of breath. Not really related to activity. Combination of the symptoms precipitated her coming to the ER.. No prior cardiac history. Serial cardiac enzymes were negative. Stress echocardiogram was negative. Could have been esophageal spasm. No history suggestive of reflux. Cleared by [facility] at home. Consultation: Dr. VC Sprague from cardiology Physical examination: VITAL SIGNS: 98.2, 76, 16, 109/57, 96% on room air GENERAL: BMI 35.4, sitting up comfortable. EYES: Pupils equal. Conjunctiva normal. HEENT: External appearance of nose and ears normal, oral cavity grossly normal ears pierced. NECK: JVD not raised; masses not palpable. HEART: First and second heart sounds are normal; no edema. LUNGS: Respiratory rate normal; clear to auscultation. ABDOMEN: Soft, nontender, liver spleen not palpable, no masses palpable. PSYCH: Alert and oriented x3; mood and affect normal. INVESTIGATIONS, reviewed in the clinical context: White count 14.3 hemoglobin 12.9 platelets 4:30 progression 4.1 and creatinine 0.61 Troponin I 3 negative TSH 6.170 LDL 131 EKG tracing personally reviewed by me-normal sinus rhythm Chest x-ray film personally reviewed by me-lungs are clear Stress echocardiogram-negative 2-D echo-EF 60 have a 65%. Assessment: -Anterior chest wall pain rather atypical, possible esophageal spasm -Intermittent asthma -Bipolar disorder -Occasional migraines -Obesity BMI 35.4 Disposition: Home Patient Condition at Discharge: Stable Plan - Discharge Summary Discharge Rx Participant: No New Discharge Prescriptions: Continue Cholecalciferol [Vitamin D3 (25 Mcg = 1000 Iu)] 2,000 unit PO Q48H Norgestimate-Ethinyl Estradiol [Ortho Tri-Cyclen Lo Tablet] 1 tab PO HS Discontinued Ibuprofen/Pseudoephedrine HCl [Advil Cold & Sinus Caplet] 1 tab PO Q6H PRN PRN Reason: Allergy Symptoms Discharge Medication List Cholecalciferol [Vitamin D3 (25 Mcg = 1000 Iu)] 2,000 unit PO Q48H 09/25/18 [History] Norgestimate-Ethinyl Estradiol [Ortho Tri-Cyclen Lo Tablet] 1 tab PO HS 05/18/19 [History] Follow up Appointment(s)/Referral(s): Mic Gross MD [Primary Care Provider] - 1 Week Activity/Diet/Wound Care/Special Instructions: recheck TSH in 3 weeks with PCP Discharge Disposition: HOME SELF-CARE
== END 2019-05-19 15:32 | disposition home or self-care (01) ==
LOC: EC 17:41 → 1SOBS 19:47
PROVIDERS: ADMIT Hospitalist; ATTEND Hospitalist
DX: R07.89 Other chest pain (principal); J45.20 Mild intermittent asthma, uncomplicated; F31.9 Bipolar disorder, unspecified; E66.9 Obesity, unspecified; F17.210 Nicotine dependence, cigarettes, uncomplicated; F41.9 Anxiety disorder, unspecified; G43.909 Migraine, unspecified, not intractable, without status migrainosus; Z68.35 Body mass index [BMI] 35.0-35.9, adult; Z82.49 Family history of ischemic heart disease and other diseases of the circulatory system; D72.829 Elevated white blood cell count, unspecified; Z83.49 Family history of other endocrine, nutritional and metabolic diseases; R94.6 Abnormal results of thyroid function studies; Z79.3 Long term (current) use of hormonal contraceptives
CPT/HCPCS: 93005 ×2; 99285; 36415; 93351; 84439; 80061; 80053; 84443; 83735; 84484 ×2; 85025; 85610; 85730; 81025; 71046; G0378 ×2; 93306

== ENCOUNTER 2020-10-19 18:40 | Emergency (ER) | payer BC ==
[2020-10-19 19:08] VITALS: BP 114/72; PULSE 85; RESP 16; TEMP 98.1
[2020-10-19] MEDS ORDERED: IBUPROFEN 600 MG TAB PO STA (19:42)
--- NOTE | 2020-10-19 19:44 | ED ---
General Adult HPI - General Chief complaint: Back Pain/Injury Stated complaint: low back pain Time Seen by Provider: 10/19/20 19:27 Source: patient Mode of arrival: ambulatory Limitations: no limitations - History of Present Illness Initial comments: 30-year-old female with a past medical history migraines, bipolar disorder presents to the emergency room for a chief complaint of low back pain. Patient reports this started yesterday. States it hurts to stand up straight and to lie flat. Patient states resting in a sitting position makes the pain better. 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 Patient has started lithium last week and her doctor told her to cause kidney problems that she wanted to make sure that it was not related to her kidneys. Patient denies fevers or chills. Denies numbness or tingling in the groin or buttock consistent with subtle anesthesia. Patient denies any bladder or bowel changes or weakness of the legs. No history of IV drug abuse.Patient has no other complaints at this time including shortness of breath, chest pain, abdominal pain, nausea or vomiting, headache, or visual changes. - Related Data Home Medications Medication Instructions Recorded Confirmed Cholecalciferol [Vitamin D3 (25 2,000 unit PO Q48H 09/25/18 05/19/19 Mcg = 1000 Iu)] Norgestimate-Ethinyl Estradiol 1 tab PO HS 05/18/19 05/19/19 [Ortho Tri-Cyclen Lo Tablet] Allergies Allergy/AdvReac Type Severity Reaction Status Date / Time No Known Allergies Allergy Verified 10/19/20 19:05 Review of Systems ROS Statement: Those systems with pertinent positive or pertinent negative responses have been documented in the HPI. ROS Other: All systems not noted in ROS Statement are negative. Past Medical History Past Medical History: Asthma Additional Past Medical History / Comment(s): migraines, BIPOLAR History of Any Multi-Drug Resistant Organisms: None Reported Past Surgical History: Section, Tubal Ligation Past Anesthesia/Blood Transfusion Reactions: No Reported Reaction Past Psychological History: Anxiety, Bipolar Smoking Status: Vaper Past Alcohol Use History: None Reported Past Drug Use History: Marijuana - Past Family History Father Family Medical History: No Reported History Mother Family Medical History: Coronary Artery Disease (CAD), Thyroid Disorder Additional Family Medical History / Comment(s): graves disease General Exam Limitations: no limitations General appearance: alert, in no apparent distress Head exam: Present: atraumatic, normocephalic, normal inspection Eye exam: Present: normal appearance, PERRL, EOMI. Absent: scleral icterus, conjunctival injection, periorbital swelling ENT exam: Present: normal exam, mucous membranes moist Neck exam: Present: normal inspection, full ROM. Absent: tenderness, meningismus, lymphadenopathy Respiratory exam: Present: normal lung sounds bilaterally. Absent: respiratory distress, wheezes, rales, rhonchi, stridor Cardiovascular Exam: Present: regular rate, normal rhythm, normal heart sounds. Absent: systolic murmur, diastolic murmur, rubs, gallop, clicks GI/Abdominal exam: Present: soft, normal bowel sounds. Absent: distended, tenderness, guarding, rebound, rigid Back exam: Present: paraspinal tenderness (Right-sided paraspinal lumbar tenderness. No lumbar spine tenderness.). Absent: full ROM (Patient has pain with extension to neutral position of the lumbar spine. Able to flex lumbar spine to about 60.), CVA tenderness (R), CVA tenderness (L), vertebral tenderness Course Vital Signs 10/19/20 19:05 Temperature 98.1 F Pulse Rate 85 Respiratory 16 Rate Blood Pressure 114/72 O2 Sat by Pulse 97 Oximetry Medical Decision Making - Medical Decision Making vitals are stable. Patient is well-appearing. patient has low back pain that is consistent with musculoskeletal back pain she has pain with full extension of the lumbar spine to neutral position. Pain with lying flat. Certain positions help the pain. Tenderness to the right paraspinal lumbar area. No CVA te nderness. Urinalysis unremarkable. At this point patient was given Motrin for pain and is stable for outpatient follow-up. Consistent with musculoskeletal back pain. No nausea vomiting, weakness, dehydration. She will return for any worsening symptoms. She will otherwise follow-up with her primary care doctor. - Lab Data Lab Results 10/19/20 Range/Units 19:45 Urine Color Light Yellow Urine Appearance Clear (Clear) Urine pH 6.5 (5.0-8.0) Ur Specific [place] 1.014 (1.001-1.035) Urine Protein Negative (Negative) Urine Glucose (UA) Negative (Negative) Urine Ketones Negative (Negative) Urine Blood Negative (Negative) Urine Nitrite Negative (Negative) Urine Bilirubin Negative (Negative) Urine Urobilinogen <2.0 (<2.0) mg/dL Ur Leukocyte Esterase Negative (Negative) Disposition Clinical Impression: Mechanical back pain Disposition: HOME SELF-CARE Condition: Good Instructions (If sedation given, give patient instructions): Acute Low Back Pain (ED) Additional Instructions: Motrin and Tylenol for pain. Please follow up with primary care in 1-2 days. Return to the emergency room for any worsening symptoms. Is patient prescribed a controlled substance at d/c from ED?: No Referrals: Mic Gross MD [Primary Care Provider] - 1-2 days Time of Disposition: 20:15
[2020-10-19 19:56] LABS: Appearance,Urine Clear (Clear); Bilirubin,Urine Negative (Negative); Blood,Urine Negative (Negative); Color,Urine Light Yellow; Glucose,Urine (UA) Negative (Negative); Ketones,Urine Negative (Negative); Leukocyte Esterase,Urine Negative (Negative); Nitrite,Urine Negative (Negative); PH, Urine 6.5 (5.0-8.0); Protein,Urine Negative (Negative); Specific Gravity,Urine 1.014 (1.001-1.035); Urobilinogen,Urine <2.0 mg/dL (<2.0)
== END 2020-10-19 20:22 | disposition home or self-care (01) ==
LOC: EC 18:40
DX: M54.5 Low back pain (principal); J45.909 Unspecified asthma, uncomplicated; G43.909 Migraine, unspecified, not intractable, without status migrainosus; F31.9 Bipolar disorder, unspecified; F41.9 Anxiety disorder, unspecified; F17.290 Nicotine dependence, other tobacco product, uncomplicated; F12.90 Cannabis use, unspecified, uncomplicated
CPT/HCPCS: 81003; 99283

== ENCOUNTER 2021-11-08 16:27 | Emergency (ER) | payer BC ==
[2021-11-08 17:00] VITALS: BP 124/72; PULSE 76; RESP 15; TEMP 98.6
--- NOTE | 2021-11-08 17:23 | ED ---
Psych HPI - General Chief Complaint: Psychiatric Symptoms Stated Complaint: EPS eval Time Seen by Provider: 11/08/21 17:11 Source: patient, family Mode of arrival: ambulatory - History of Present Illness Initial Comments: Patient is a 31-year-old female with a past medical history of bipolar disorder who presents to the emergency departments for psychiatric evaluation. Patient's states he received a text messages today from patient saying she would be moved out by the time he got home. Patient's states he got home this afternoon and found goodbye letters. Patient did return home and agreed to psychiatric evaluation. Patient has suicidal ideation with plan. Pills. Denies homicidal ideation. Denies auditory or visual hallucinations. Denies recent alcohol and drug use. Denies fever, chills, chest pain, shortness of breath, abdominal pain, nausea, vomiting, constipation, and burning with urination. - Related Data Home Medications Medication Instructions Recorded Confirmed ALPRAZolam [Xanax] 0.25 mg PO DAILY PRN 11/08/21 11/08/21 Dextroamphetamine/Amphetamine 20 mg PO DAILY 11/08/21 11/08/21 [Adderall Xr 20 mg Capsule] FLUoxetine HCL [Sarafem] 60 mg PO DAILY 11/08/21 11/08/21 [place] Carbonate 600 mg PO BID 11/08/21 11/08/21 busPIRone HCl [Buspar] 5 mg PO TID 11/08/21 11/08/21 Allergies Allergy/AdvReac Type Severity Reaction Status Date / Time No Known Allergies Allergy Verified 11/08/21 18:37 Review of Systems ROS Statement: Those systems with pertinent positive or pertinent negative responses have been documented in the HPI. ROS Other: All systems not noted in ROS Statement are negative. Past Medical History Past Medical History: Asthma Additional Past Medical History / Comment(s): migraines, BIPOLAR History of Any Multi-Drug Resistant Organisms: None Reported Past Surgical History: Section, Tubal Ligation Past Anesthesia/Blood Transfusion Reactions: No Reported Reaction Past Psychological History: Anxiety, Bipolar Smoking Status: Vaper Past Alcohol Use History: None Reported Past Drug Use History: Marijuana - Past Family History Father Family Medical History: No Reported History Mother Family Medical History: Coronary Artery Disease (CAD), Thyroid Disorder Additional Family Medical History / Comment(s): graves disease General Exam Limitations: no limitations General appearance: alert, in no apparent distress Head exam: Present: atraumatic, normocephalic, normal inspection Eye exam: Present: normal appearance, PERRL, EOMI. Absent: scleral icterus, conjunctival injection, periorbital swelling Respiratory exam: Present: normal lung sounds bilaterally. Absent: respiratory distress, wheezes, rales, rhonchi, stridor Cardiovascular Exam: Present: regular rate, normal rhythm, normal heart sounds. Absent: systolic murmur, diastolic murmur, rubs, gallop, clicks GI/Abdominal exam: Present: soft, normal bowel sounds. Absent: distended, tenderness, guarding, rebound, rigid Neurological exam: Present: alert, oriented X3, CN II-XII intact Psychiatric exam: Present: normal affect, normal mood Skin exam: Present: warm, dry, intact, normal color. Absent: rash Course Vital Signs 11/08/21 16:52 Temperature 98.6 F Pulse Rate 76 Respiratory 15 Rate Blood Pressure 124/72 O2 Sat by Pulse 99 Oximetry Medical Decision Making - Medical Decision Making This is a 31-year-old female presents for psychiatric evaluation. Thorough history and examination were performed. Physical exam is unremarkable. Patient is cleared from medical standpoint. She is to be evaluated by our psychiatric services. Patient left against medical advice later during her visit. Dr. Davidson is my attending. - Lab Data Lab Results 11/08/21 Range/Units 17:27 Urine Opiates Screen Not Detected (NotDetected) Ur Oxycodone Screen Not Detected (NotDetected) Urine Methadone Screen Not Detected (NotDetected) Ur Propoxyphene Screen Not Detected (NotDetected) Ur Barbiturates Screen Not Detected (NotDetected) U Tricyclic Antidepress Not Detected (NotDetected) Ur Phencyclidine Scrn Not Detected (NotDetected) Ur Amphetamines Screen Not Detected (NotDetected) U Methamphetamines Scrn Not Detected (NotDetected) U Benzodiazepines Scrn Not Detected (NotDetected) Urine Cocaine Screen Not Detected (NotDetected) U Marijuana (THC) Screen Detected H (NotDetected) Disposition Clinical Impression: Suicidal ideation Disposition: Left Against Medical Advice Is patient prescribed a controlled substance at d/c from ED?: No Referrals: Mic Gross MD [Primary Care Provider] - 1-2 days
[2021-11-08 18:19] LABS: Amphetamine Screen,Urine Not Detected (NotDetected); Barbiturate Screen,Urine Not Detected (NotDetected); Benzodiazepines Screen,Urine Not Detected (NotDetected); Cocaine Screen,Urine Not Detected (NotDetected); Methadone Screen, Urine Not Detected (NotDetected); Opiate Screen,Urine Not Detected (NotDetected); Oxycodone Screen, Urine Not Detected (NotDetected); Phencyclidine Screen,Urine Not Detected (NotDetected); Tricyclic Antidepressant,Urine Not Detected (NotDetected); Urn Cannabinoid Scrn Detected (NotDetected)
== END 2021-11-08 21:53 | disposition left against medical advice (07) ==
LOC: EC 16:27
DX: R45.851 Suicidal ideations (principal); F17.290 Nicotine dependence, other tobacco product, uncomplicated; J45.909 Unspecified asthma, uncomplicated; Z53.29 Procedure and treatment not carried out because of patient's decision for other reasons
CPT/HCPCS: 80306; 82075; 99284

== ENCOUNTER 2023-07-07 20:24 | Observation (INO) | payer BC ==
[2023-07-07] MEDS: ONDANSETRON 4 MG/2 ML VIAL IVP STA (21:19)
[2023-07-07] MEDS: KETOROLAC 15 MG/ML 1 ML VIAL IVP STA (21:20)
--- NOTE | 2023-07-07 21:20 | ED ---
General Adult HPI - General Chief complaint: Abdominal Pain Stated complaint: Abd pain Time Seen by Provider: 07/07/23 20:41 Source: patient, RN notes reviewed Mode of arrival: wheelchair Limitations: no limitations - History of Present Illness Initial comments: 32-year-old female presents to the emergency department for evaluation of right- sided flank pain x 1 hour prior to arrival. She states that this came on suddenly while she [place] walking [place] the [place] today. She states that since it started it has radiated to the right side of her abdomen, suprapubic region. Patient denies nausea, vomiting, fever. She does admit to urinary frequency, d ysuria, hematuria x 1 week. No history of kidney stones. Prior abdominal surgeries include C-sections. - Related Data Home Medications Medication Instructions Recorded Confirmed Dextroamphetamine/Amphetamine 15 mg PO BID 07/08/23 07/08/23 [Adderall] Allergies Allergy/AdvReac Type Severity Reaction Status Date / Time No Known Allergies Allergy Verified 07/08/23 11:57 Review of Systems ROS Statement: Those systems with pertinent positive or pertinent negative responses have been documented in the HPI. ROS Other: All systems not noted in ROS Statement are negative. Past Medical History Past Medical History: Asthma Additional Past Medical History / Comment(s): migraines, BIPOLAR History of Any Multi-Drug Resistant Organisms: None Reported Past Surgical History: Section, Tubal Ligation Past Anesthesia/Blood Transfusion Reactions: No Reported Reaction Past Psychological History: Anxiety, Bipolar Smoking Status: Vaper Past Alcohol Use History: None Reported Past Drug Use History: Marijuana - Past Family History Father Family Medical History: No Reported History Mother Family Medical History: Coronary Artery Disease (CAD), Thyroid Disorder Additional Family Medical History / Comment(s): graves disease General Exam Limitations: no limitations General appearance: alert, in no apparent distress Head exam: Present: atraumatic, normocephalic, normal inspection Eye exam: Present: normal appearance, PERRL, EOMI. Absent: scleral icterus, conjunctival injection, periorbital swelling ENT exam: Present: normal exam, mucous membranes moist Respiratory exam: Present: normal lung sounds bilaterally. Absent: respiratory distress, wheezes, rales, rhonchi, stridor Cardiovascular Exam: Present: regular rate, normal rhythm, normal heart sounds. Absent: systolic murmur, diastolic murmur, rubs, gallop, clicks GI/Abdominal exam: Present: soft, tenderness, normal bowel sounds. Absent: distended Extremities exam: Present: normal inspection, full ROM, normal capillary refill. Absent: tenderness, pedal edema, joint swelling, calf tenderness Back exam: Present: CVA tenderness (R) Neurological exam: Present: alert, oriented X3 Psychiatric exam: Present: normal affect, normal mood Skin exam: Present: warm, dry, intact, normal color. Absent: rash Course Vital Signs 07/07/23 07/07/23 07/08/23 20:39 22:21 00:34 Temperature 97.3 F L 98.3 F Pulse Rate 70 70 Pulse Rate [ 62 Right] Respiratory 16 18 18 Rate Blood Pressure 120/79 120/70 Blood Pressure 127/88 [Right Arm] O2 Sat by Pulse 98 100 99 Oximetry Medical Decision Making - Medical Decision Making Was pt. sent in by a medical professional or institution (, PA, KENNEL HAND, urgent care, hospital, or prison...) When possible be specific @ -No Did you speak to anyone other than the patient for history (EMS, parent, family, police, friend...)? What history was obtained from this source @ -No Did you review nursing and triage notes (agree or disagree)? Why? @ -I reviewed and agree with nursing and triage notes Were old charts reviewed (outside hosp., previous admission, EMS record, old EKG, old radiological studies, urgent care reports/EKG's, prison records)? Report findings @ -No old charts were reviewed Differential Diagnosis (chest pain, altered mental status, abdominal pain women, abdominal pain men, vaginal bleeding, weakness, fever, dyspnea, syncope, headache, dizziness, GI bleed, back pain, seizure, CVA, palpatations, mental health, musculoskeletal)? @ -Differential Back Pain: Strain, zoster, cauda equina syndrome, epidural abscess, vertebral osteomyelitis, discitis, fracture, subluxation, disc herniation, DJD, spinal stenosis, dissection, AAA, pancreatitis, peptic ulcer disease, pyelonephritis, kidney stone, this is not meant to be an all-inclusive list. EKG interpreted by me (3pts min.). @ -None X-rays interpreted by me (1pt min.). @ -None done CT interpreted by me (1pt min.). @ -CT abdomen pelvis obtained shows moderate right-sided hydroureteronephrosis with dilation of the ureter down to the pelvis without definitive sizable stone, punctate calculus along the right posterior aspect of the bladder potentially at UPJ versus bladder lumen, hyperdense urinary contents U/S interpreted by me (1pt. min.). @ -None done What testing was considered but not performed or refused? (CT, X-rays, U/S, labs)? Why? @ -None What meds were considered but not given or refused? Why? @ -None Did you discuss the management of the patient with other professionals (professionals i.e. , PA, KENNEL HAND, lab, RT, psych nurse, social welfare administrator, cafe site attendant, teacher, forward air controller/air officer, director of casework services)? Give summary @ -No Was smoking cessation discussed for >3mins.? @ -No Was critical care preformed (if so, how long)? @ -No Were there social determinants of health that impacted care today? How? (Ho melessness, low income, unemployed, alcoholism, drug addiction, transportation, low edu. Level, literacy, decrease access to med. care, skilled nursing, rehab)? @ -No Was there de-escalation of care discussed even if they declined (Discuss DNR or withdrawal of care, Hospice)? DNR status @ -No What co-morbidities impacted this encounter? (DM, HTN, Smoking, COPD, CAD, Cancer, CVA, ARF, Chemo, Hep., AIDS, mental health diagnosis, sleep apnea, morbid obesity)? @ -None Was patient admitted / discharged? Hospital course, mention meds given and route, prescriptions, significant lab abnormalities, going to OR and other pertinent info. @ -Admitted. Patient presented to the emergency department for evaluation of flank pain x 1 hour prior to arrival. Patient admits to dysuria, hematuria x 1 week. Laboratory studies obtained here which show leukocytosis significant at 15.2, hemoglobin stable at 12.7; normal coagulation studies; creatinine 0.63; UA shows turbid urine, 2+ protein, large blood, moderate leukocyte esterase, greater than 182 RBCs, greater than 182 WBCs, many urine bacteria; urine hCG neg ative. CT abdomen pelvis obtained which shows moderate right-sided hydroureteronephrosis with dilation of the ureter down to the pelvis without a definitive size stone, she also has hyperdense urinary contents. Based on the patient's hydronephrosis, leukocytosis, many bacteria in the urine patient will be admitted to medicine with IV antibiotics, fluids, pain management Patient understanding agreeable plan. Case discussed with Dr. Storm will discuss case with admitting provider in AM. Undiagnosed new problem with uncertain prognosis? @ -No Drug Therapy requiring intensive monitoring for toxicity (Heparin, Nitro, Insulin, Cardizem)? @ -No Were any procedures done? @ -No Diagnosis/symptom? @ -UTI, hydroureteronephrosis, urolithiasis Acute, or Chronic, or Acute on Chronic? @ -Acute Uncomplicated (without systemic symptoms) or Complicated (systemic symptoms)? @ -Complicated Side effects of treatment? @ -No Exacerbation, Progression, or Severe Exacerbation? @ -No Poses a threat to life or bodily function? How? (Chest pain, [place], [place], pneumonia, PE, COPD, DKA, ARF, appy, cholecystitis, CVA, Diverticulitis, Homicidal, Suicidal, threat to staff... and all critical care pts) @ -No - Lab Data Result diagrams: 07/07/23 21:20 07/07/23 21:20 Lab Results 07/07/23 07/07/23 07/07/23 Range/Units 21:20 21:20 21:20 WBC 15.2 H (3.8-10.6) k/uL RBC 4.22 (3.80-5.40) m/uL Hgb 12.7 (11.4-16.0) gm/dL Hct 37.4 (34.0-46.0) % MCV 88.6 (80.0-100.0) fL MCH 30.0 (25.0-35.0) pg MCHC 33.8 (31.0-37.0) g/dL RDW 13.3 (11.5-15.5) % Plt Count 394 (150-450) k/uL MPV 7.8 Neutrophils % 51 % Lymphocytes % 40 % Monocytes % 4 % Eosinophils % 2 % Basophils % 1 % Neutrophils # 7.7 (1.3-7.7) k/uL Lymphocytes # 6.2 H (1.0-4.8) k/uL Monocytes # 0.7 (0-1.0) k/uL Eosinophils # 0.3 (0-0.7) k/uL Basophils # 0.1 (0-0.2) k/uL PT 11.2 (10.0-12.5) sec INR 1.0 (<1.2) APTT 21.6 L (22.0-30.0) sec Sodium 141 (137-145) mmol/L Potassium 3.4 L (3.5-5.1) mmol/L Chloride 105 (98-107) mmol/L Carbon Dioxide 24 (22-30) mmol/L Anion Gap 12 mmol/L BUN 16 (7-17) mg/dL Creatinine 0.63 (0.52-1.04) mg/dL Est GFR (CKD-EPI)AfAm >90 (>60 ml/min/1.73 sqM) Est GFR (CKD-EPI)NonAf >90 (>60 ml/min/1.73 sqM) Glucose 112 H (74-99) mg/dL Plasma Lactic Acid Camilo (0.7-2.0) mmol/L Calcium 9.4 (8.4-10.2) mg/dL Total Bilirubin 0.4 (0.2-1.3) mg/dL AST 28 (14-36) U/L ALT 18 (4-34) U/L Alkaline Phosphatase 73 (38-126) U/L Total Protein 7.5 (6.3-8.2) g/dL Albumin 4.8 (3.5-5.0) g/dL Amylase 73 (30-110) U/L Lipase 199 (23-300) U/L Urine Color Urine Appearance (Clear) Urine pH (5.0-8.0) Ur Specific [place] (1.001-1.035) Urine Protein (Negative) Urine Glucose (UA) (Negative) Urine Ketones (Negative) Urine Blood (Negative) Urine Nitrite (Negative) Urine Bilirubin (Negative) Urine Urobilinogen (<2.0) mg/dL Ur Leukocyte Esterase (Negative) Urine RBC (0-5) /hpf Urine WBC (0-5) /hpf Ur Squamous Epith Cells (0-4) /hpf Amorphous Sediment (None) /hpf Urine Bacteria (None) /hpf Urine Mucus (None) /hpf Urine HCG, Qual (Not Detectd) 07/07/23 07/07/23 07/07/23 Range/Units 21:20 21:23 21:23 WBC (3.8-10.6) k/uL RBC (3.80-5.40) m/uL Hgb (11.4-16.0) gm/dL Hct (34.0-46.0) % MCV (80.0-100.0) fL MCH (25.0-35.0) pg MCHC (31.0-37.0) g/dL RDW (11.5-15.5) % Plt Count (150-450) k/uL MPV Neutrophils % % Lymphocytes % % Monocytes % % Eosinophils % % Basophils % % Neutrophils # (1.3-7.7) k/uL Lymphocytes # (1.0-4.8) k/uL Monocytes # (0-1.0) k/uL Eosinophils # (0-0.7) k/uL Basophils # (0-0.2) k/uL PT (10.0-12.5) sec INR (<1.2) APTT (22.0-30.0) sec Sodium (137-145) mmol/L Potassium (3.5-5.1) mmol/L Chloride (98-107) mmol/L Carbon Dioxide (22-30) mmol/L Anion Gap mmol/L BUN (7-17) mg/dL Creatinine (0.52-1.04) mg/dL Est GFR (CKD-EPI)AfAm (>60 ml/min/1.73 sqM) Est GFR (CKD-EPI)NonAf (>60 ml/min/1.73 sqM) Glucose (74-99) mg/dL Plasma Lactic Acid Camilo 1.4 (0.7-2.0) mmol/L Calcium (8.4-10.2) mg/dL Total Bilirubin (0.2-1.3) mg/dL AST (14-36) U/L ALT (4-34) U/L Alkaline Phosphatase (38-126) U/L Total Protein (6.3-8.2) g/dL Albumin (3.5-5.0) g/dL Amylase (30-110) U/L Lipase (23-300) U/L Urine Color Yellow Urine Appearance Turbid H (Clear) Urine pH 8.0 (5.0-8.0) Ur Specific [place] 1.020 (1.001-1.035) Urine Protein 2+ H (Negative) Urine Glucose (UA) Negative (Negative) Urine Ketones Negative (Negative) Urine Blood Large H (Negative) Urine Nitrite Negative (Negative) Urine Bilirubin Negative (Negative) Urine Urobilinogen <2.0 (<2.0) mg/dL Ur Leukocyte Esterase Moderate H (Negative) Urine RBC >182 H (0-5) /hpf Urine WBC >182 H (0-5) /hpf Ur Squamous Epith Cells 12 H (0-4) /hpf Amorphous Sediment Rare H (None) /hpf Urine Bacteria Many H (None) /hpf Urine Mucus Many H (None) /hpf Urine HCG, Qual Not Detected (Not Detectd) Disposition Clinical Impression: Urolithiasis, Hydroureter, UTI (urinary tract infection) Disposition: ADMITTED IP TO THIS HOSP Condition: Stable Is patient prescribed a controlled substance at d/c from ED?: No
[2023-07-07] MEDS: MORPHINE SULFATE 4 MG/ML SYRINGE IVP STA (21:22)
[2023-07-07 21:38] LABS: ALT 18 U/L (4-34); AST 28 U/L (14-36); African American GFR (CKD) >90 (>60 ml/min/1.73 sqM); Albumin 4.8 g/dL (3.5-5.0); Alkaline Phosphatase 73 U/L (38-126); Amylase 73 U/L (30-110); Anion Gap 12 mmol/L; Blood Urea Nitrogen 16 mg/dL (7-17); Calcium 9.4 mg/dL (8.4-10.2); Carbon Dioxide 24 mmol/L (22-30); Chloride 105 mmol/L (98-107); Glucose 112 mg/dL (74-99); Lipase 199 U/L (23-300); Non-African American GFR(CKD) >90 (>60 ml/min/1.73 sqM); Potassium 3.4 mmol/L (3.5-5.1); Sodium 141 mmol/L (137-145); Total Bilirubin 0.4 mg/dL (0.2-1.3); Total Protein 7.5 g/dL (6.3-8.2)
[2023-07-07 22:10] LABS: Amorphous Sediment,Urine Rare /hpf; Appearance,Urine Turbid (Clear); Bacteria,Urine Many /hpf; Bilirubin,Urine Negative (Negative); Blood,Urine Large (Negative); Color,Urine Yellow; Glucose,Urine (UA) Negative (Negative); Ketones,Urine Negative (Negative); Leukocyte Esterase,Urine Moderate (Negative); Mucus,Urine Many /hpf; Nitrite,Urine Negative (Negative); Protein,Urine 2+ (Negative); RBC,Urine >182 /hpf (0-5); Squamous Epithelial Cell,Urine 12 /hpf (0-4); Urobilinogen,Urine <2.0 mg/dL (<2.0); WBC,Urine >182 /hpf (0-5)
[2023-07-07 22:17] LABS: Basophils # (A) 0.1 k/uL (0-0.2); Basophils % (A) 1 %; Eosinophils # (A) 0.3 k/uL (0-0.7); Eosinophils % (A) 2 %; HCT 37.4 % (34.0-46.0); HGB 12.7 gm/dL (11.4-16.0); Lymphocytes # (A) 6.2 k/uL (1.0-4.8); Lymphocytes % (A) 40 %; MCHC 33.8 g/dL (31.0-37.0); MCV 88.6 fL (80.0-100.0); Mean Platelet Volume 7.8; Monocytes # (A) 0.7 k/uL (0-1.0); Monocytes % (A) 4 %; Neutrophils # (A) 7.7 k/uL (1.3-7.7); Neutrophils % (A) 51 %; Platelet Count 394 k/uL (150-450); RBC 4.22 m/uL (3.80-5.40); RDW 13.3 % (11.5-15.5); WBC 15.2 k/uL (3.8-10.6)
--- NOTE | 2023-07-07 22:28 | CT ---
EXAMINATION TYPE: CT abdomen pelvis wo con CT DLP: 675.5 mGycm, Automated exposure control for dose reduction was used. DATE OF EXAM: 07/07/2023 10:01 PM COMPARISON: None. CLINICAL INDICATION:Female, 32 years old with history of right flank pain, abd pain; right flank pain , abd pain TECHNIQUE: Axial CT of the abdomen and pelvis. Sagittal and coronal reformats were created on a [employer] workstation. Contrast used: mL of , (none if empty) Oral contrast used: without Oral Contrast (none if empty) FINDINGS: LOWER CHEST: Unremarkable ABDOMEN LIVER: Unremarkable GALLBLADDER AND BILE DUCTS: Unremarkable gallbladder. No biliary ductal dilatation. PANCREAS: Unremarkable. SPLEEN: Unremarkable. ADRENAL GLANDS: Unremarkable. KIDNEYS AND URETERS, BLADDER: Punctate calculus in the lower pole left kidney. No sizable renal calcu li are seen on the right. Left ureter is nondilated. On the right there is moderate hydroureteronephr osis,. The ureter appears dilated down into the pelvis without definitive sizable stone demonstrated. A punctate calculus along the right posterior aspect of the bladder could potentially be at the uret eropelvic junction or in the bladder lumen. Bladder is mostly empty limiting its assessment. Urinary contents, most conspicuous in the dilated right ureter, appear more hyperdense than normally expected . PELVIS REPRODUCTIVE: Uterus is present and anteverted. Moderate generalized likely the ovaries appear unrema rkable. No pelvic mass is suggested. ABDOMEN & PELVIS STOMACH AND BOWEL: Stomach and small bowel are nondistended, no evidence of obstruction. Appendix i s within normal limits. Moderate stool throughout colon without distinct acute abnormality. PERITONEUM/RETROPERITONEUM: No evidence of pneumoperitoneum or free fluid. VASCULATURE: Aorta and major branches are grossly unremarkable. No AAA. LYMPH NODES: No evidence for lymphadenopathy. SOFT TISSUE/ABDOMINAL WALL: Small fat-containing umbilical hernia. MUSCULOSKELETAL: No acute osseous abnormalities. IMPRESSION: 1. Moderate right-sided hydroureteronephrosis,. The ureter appears dilated down into the pelvis with out definitive sizable stone demonstrated. A punctate calculus along the right posterior aspect of th e bladder could potentially be at the ureteropelvic junction or in the bladder lumen. 2. Urinary contents appear somewhat more hyperdense than normally expected. Please correlate clinica lly with UA.
[2023-07-07 22:29] LABS: Partial Thromboplastin Time 21.6 sec (22.0-30.0); Prothrombin Time 11.2 sec (10.0-12.5)
[2023-07-07] MEDS ORDERED: IBUPROFEN 400 MG TAB PO PRN (23:15)
[2023-07-07] MEDS ORDERED: NALOXONE 0.4 MG/ML 1 ML VIAL IV PRN (23:15)
[2023-07-07] MEDS ORDERED: HYDROmorphone 1 MG/ML 1 ML SYRINGE IVP PRN (23:15)
[2023-07-08] MEDS: HYDROmorphone 0.5 MG/0.5 ML SYRINGE IVP PRN (00:33)
[2023-07-08] MEDS: SODIUM CHLORIDE 0.9% 1,000 ML IV SCH (00:33)
[2023-07-08] MEDS: SODIUM CHLORIDE 0.9% 1,000 ML IV ONE (00:37)
[2023-07-08] MEDS: KETOROLAC 15 MG/ML 1 ML VIAL IVP PRN (09:18)
[2023-07-08] MEDS: ONDANSETRON 4 MG/2 ML VIAL IVP PRN (09:18)
--- NOTE | 2023-07-08 09:58 | P.GSCN ---
History of Present Illness Consult date: 07/08/23 Reason for Consult: UTI, ureteral stone History of present illness: This is a 32-year-old female that presented to the hospital with right-sided flank pain, associated with nausea and vomiting. In addition she has been having intermittent gross hematuria and dysuria for the past week. Underwent a CT abdomen pelvis that showed evidence of a 2 mm right-sided UVJ stone with hydronephrosis. Denies any previous history of kidney stones. No known family history of kidney stones. This morning on evaluation she is still having some pain but it has improved. In addition she is also been complaining of urgency and frequency in addition to her flank pain. On presentation her vitals were within normal limits. Review of Systems - Constitutional Denies fever, Denies weight loss - EENT Ears, nose, mouth and throat: Denies dysphagia - Cardiovascular Denies chest pain, Denies shortness of breath - Respiratory Denies cough, Denies 7 - Gastrointestinal Reports abdominal pain, Reports nausea, Reports vomiting - Genitourinary Genitourinary: Reports flank pain, Reports kidney stones, Reports urgency, Denies hematuria Past Medical History Past Medical History: Asthma Additional Past Medical History / Comment(s): migraines, BIPOLAR History of Any Multi-Drug Resistant Organisms: None Reported Past Surgical History: Section, Tubal Ligation Past Anesthesia/Blood Transfusion Reactions: No Reported Reaction Past Psychological History: ADD/ADHD, Anxiety, Bipolar Smoking Status: Former smoker, Vaper Past Alcohol Use History: None Reported Past Drug Use History: Marijuana - Past Family History Father Family Medical History: No Reported History Mother Family Medical History: Coronary Artery Disease (CAD), Thyroid Disorder Additional Family Medical History / Comment(s): graves disease Medications and Allergies Home Medications Medication Instructions Recorded Confirmed Type ALPRAZolam [Xanax] 0.25 mg PO DAILY PRN 11/08/21 11/08/21 History Dextroamphetamine/Amphetamine 20 mg PO DAILY 11/08/21 11/08/21 History [Adderall Xr 20 mg Capsule] FLUoxetine HCL [Sarafem] 60 mg PO DAILY 11/08/21 11/08/21 History Bonney Carbonate 600 mg PO BID 11/08/21 11/08/21 History busPIRone HCl [Buspar] 5 mg PO TID 11/08/21 11/08/21 History Allergies Allergy/AdvReac Type Severity Reaction Status Date / Time No Known Allergies Allergy Verified 11/08/21 18:37 Surgical - Exam Vital Signs Temp Pulse Resp BP Pulse Ox 97.3 F L 70 16 120/79 98 07/07/23 20:39 07/07/23 20:39 07/07/23 20:39 07/07/23 20:39 07/07/23 20:39 - General no distress, moderate pain - Eyes normal ocular movement, no pale - ENT normal nares, normal mucosa - Respiratory normal expansion, normal respiratory effort - Abdomen Abdomen: soft, non tender - Psychiatric oriented to time, oriented to person, oriented to place, speech is normal Results - Labs 07/07/23 21:20 07/07/23 21:20 Abnormal Lab Results - Last 24 Hours (Table) 07/07/23 07/07/23 07/07/23 Range/Units 21:20 21:20 21:20 WBC 15.2 H (3.8-10.6) k/uL Lymphocytes # 6.2 H (1.0-4.8) k/uL APTT 21.6 L (22.0-30.0) sec Potassium 3.4 L (3.5-5.1) mmol/L Glucose 112 H (74-99) mg/dL Urine Appearance (Clear) Urine Protein (Negative) Urine Blood (Negative) Ur Leukocyte Esterase (Negative) Urine RBC (0-5) /hpf Urine WBC (0-5) /hpf Ur Squamous Epith Cells (0-4) /hpf Amorphous Sediment (None) /hpf Urine Bacteria (None) /hpf Urine Mucus (None) /hpf 07/07/23 Range/Units 21:23 WBC (3.8-10.6) k/uL Lymphocytes # (1.0-4.8) k/uL APTT (22.0-30.0) sec Potassium (3.5-5.1) mmol/L Glucose (74-99) mg/dL Urine Appearance Turbid H (Clear) Urine Protein 2+ H (Negative) Urine Blood Large H (Negative) Ur Leukocyte Esterase Moderate H (Negative) Urine RBC >182 H (0-5) /hpf Urine WBC >182 H (0-5) /hpf Ur Squamous Epith Cells 12 H (0-4) /hpf Amorphous Sediment Rare H (None) /hpf Urine Bacteria Many H (None) /hpf Urine Mucus Many H (None) /hpf Diabetes panel 07/07/23 Range/Units 21:20 Sodium 141 (137-145) mmol/L Potassium 3.4 L (3.5-5.1) mmol/L Chloride 105 (98-107) mmol/L Carbon Dioxide 24 (22-30) mmol/L BUN 16 (7-17) mg/dL Creatinine 0.63 (0.52-1.04) mg/dL Glucose 112 H (74-99) mg/dL Calcium 9.4 (8.4-10.2) mg/dL AST 28 (14-36) U/L ALT 18 (4-34) U/L Alkaline Phosphatase 73 (38-126) U/L Total Protein 7.5 (6.3-8.2) g/dL Albumin 4.8 (3.5-5.0) g/dL Calcium panel 07/07/23 Range/Units 21:20 Calcium 9.4 (8.4-10.2) mg/dL Albumin 4.8 (3.5-5.0) g/dL Pituitary panel 07/07/23 Range/Units 21:20 Sodium 141 (137-145) mmol/L Potassium 3.4 L (3.5-5.1) mmol/L Chloride 105 (98-107) mmol/L Carbon Dioxide 24 (22-30) mmol/L BUN 16 (7-17) mg/dL Creatinine 0.63 (0.52-1.04) mg/dL Glucose 112 H (74-99) mg/dL Calcium 9.4 (8.4-10.2) mg/dL Adrenal panel 07/07/23 Range/Units 21:20 Sodium 141 (137-145) mmol/L Potassium 3.4 L (3.5-5.1) mmol/L Chloride 105 (98-107) mmol/L Carbon Dioxide 24 (22-30) mmol/L BUN 16 (7-17) mg/dL Creatinine 0.63 (0.52-1.04) mg/dL Glucose 112 H (74-99) mg/dL Calcium 9.4 (8.4-10.2) mg/dL Total Bilirubin 0.4 (0.2-1.3) mg/dL AST 28 (14-36) U/L ALT 18 (4-34) U/L Alkaline Phosphatase 73 (38-126) U/L Total Protein 7.5 (6.3-8.2) g/dL Albumin 4.8 (3.5-5.0) g/dL - Imaging CT scan - abdomen: image reviewed (2 mm right-sided UVJ stone, versus a stone within the bladder. Hydronephrosis on the right) Assessment and Plan Assessment: 32-year-old female with history of 2 mm right-sided UVJ stone, UTI. Having some pain this morning but has improved compared to presentation. Discussed with her the stone is fairly small and a very high chance of spontaneous passage. This point she is agreeable with medical expulsive therapy. If she has persistent pain tomorrow then we will consider a stent -Continue IV fluid -Will start Flomax -Will reassess tomorrow
[2023-07-08] MEDS ORDERED: ALPRAZolam 0.25 MG TAB PO PRN (11:10)
[2023-07-08] MEDS ORDERED: busPIRone HCl 5 MG TAB PO SCH (11:15)
[2023-07-08] MEDS ORDERED: FLUoxetine HCL 20 MG CAP PO SCH (11:15)
[2023-07-08] MEDS ORDERED: LITHIUM CARBONATE 300 MG CAP PO SCH (11:15)
[2023-07-08] MEDS: TAMSULOSIN 0.4 MG CAP.ER.24H PO SCH (12:03)
[2023-07-08] MEDS: ADDERALL 20 MG PO SCH (12:21)
[2023-07-08] MEDS ORDERED: CALCIUM CARBONATE 500 MG CHEWABLE PO PRN (15:09)
[2023-07-08] MEDS ORDERED: LACTULOSE 20 GM/30 ML CUP PO PRN (15:09)
[2023-07-08] MEDS ORDERED: LORazepam 0.5 MG TAB PO PRN (15:09)
[2023-07-08] MEDS ORDERED: MELATONIN 3 MG TABLET PO PRN (15:09)
--- NOTE | 2023-07-08 15:10 | P.HPIM ---
History of Present Illness H&P Date: 07/08/23 Chief Complaint: Right flank pain This is a pleasant 32[address] Gross. Chronic stable medical conditions include asthma, bipolar disorder, occasional migraines. Patient yesterday started with pain in the right flank. Acute need by chills vomiting. Urine became dark in color. Tired rundown. Presented to the ER. CT scan showed ureter to be dilated down to the pelvis without. Urology consulted. No fever noted. Review of systems: GEN.: Tired EYES: None HEENT: None NECK: None RESPIRATORY: None CARDIOVASCULAR: As above GASTROINTESTINAL: None GENITOURINARY: As above MUSCULOSKELETAL: As above LYMPHATICS: None HEMATOLOGICAL: None PSYCHIATRY: None NEUROLOGICAL: None Past medical history to include: Asthma, bipolar, migraines Social history: , does vaping. Marijuana occasionally. 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 Conjunctiva normal. HEENT: External appearance of nose and ears normal, oral cavity grossly normal ears pierced. NECK: JVD not raised; masses not palpable. HEART: First and second heart sounds are normal; no edema. LUNGS: Respiratory rate normal; clear to auscultation. ABDOMEN: Soft, right renal angle tenderness, liver spleen not palpable, no masses palpable. PSYCH: Alert and oriented x3; mood and affect normal. NEUROLOGICAL: Cranial nerves grossly intact; no facial asymmetry, power and sensation grossly intact. LYMPHATICS: No lymph nodes palpable in the axilla and neck INVESTIGATIONS, reviewed in the clinical context: July 06: White count 15.2 hemoglobin 12.7 platelets 394 sodium 141 potassium 3.4 creatinine 0.63 LDL 131 triglycerides 173 UA positive for blood. WBC RBC. CT abdomen: Moderate right-sided hydroureteronephrosis. Ureter dilated down to the pelvis. Without sizable stone demonstrated. A punctate calculi along the right posterior aspect of the bladder could potentially be at the ureteropelvic junction or in the bladder lumen. Assessment: -Acute moderate right-sided hydroureteronephrosis. Possible stone at the ureteropelvic junction. Rather small. Urology consulted. IV fluids. Flomax. -Intermittent asthma Albuterol as needed -Bipolar disorder Adderall 50 mg twice daily -Obesity BMI 35.4 Weight loss measures -Full code Care was discussed with the patient. Questions answered. Past Medical History Past Medical History: Asthma Additional Past Medical History / Comment(s): migraines, BIPOLAR History of Any Multi-Drug Resistant Organisms: None Reported Past Surgical History: Section, Tubal Ligation Past Anesthesia/Blood Transfusion Reactions: No Reported Reaction Past Psychological History: ADD/ADHD, Anxiety, Bipolar Smoking Status: Former smoker, Vaper Past Alcohol Use History: None Reported Past Drug Use History: Marijuana - Past Family History Father Family Medical History: No Reported History Mother Family Medical History: Coronary Artery Disease (CAD), Thyroid Disorder Additional Family Medical History / Comment(s): graves disease Medications and Allergies Home Medications Medication Instructions Recorded Confirmed Type Dextroamphetamine/Amphetamine 15 mg PO BID 07/08/23 07/08/23 History [Adderall] Allergies Allergy/AdvReac Type Severity Reaction Status Date / Time No Known Allergies Allergy Verified 07/08/23 11:57 Physical Exam Vitals: Vital Signs Temp Pulse Pulse Pulse Resp BP BP 07/08/23 07:26 97.3 F L 72 16 97/57 07/08/23 03:00 98.4 F 68 20 138/76 07/08/23 00:34 98.3 F 62 18 127/88 07/07/23 22:21 70 18 120/70 07/07/23 20:39 97.3 F L 70 16 120/79 Pulse Ox 07/08/23 07:26 98 07/08/23 03:00 97 07/08/23 00:34 99 07/07/23 22:21 100 07/07/23 20:39 98 Intake and Output 07/07/23 07/08/23 07/08/23 21:59 06:59 14:59 Other: Voiding Method Toilet # Voids Weight Results CBC & Chem 7: 07/07/23 21:20 07/07/23 21:20 Labs: Abnormal Lab Results - Last 24 Hours (Table) 07/07/23 07/07/23 07/07/23 Range/Units 21:20 21:20 21:20 WBC 15.2 H (3.8-10.6) k/uL Lymphocytes # 6.2 H (1.0-4.8) k/uL APTT 21.6 L (22.0-30.0) sec Potassium 3.4 L (3.5-5.1) mmol/L Glucose 112 H (74-99) mg/dL Urine Appearance (Clear) Urine Protein (Negative) Urine Blood (Negative) Ur Leukocyte Esterase (Negative) Urine RBC (0-5) /hpf Urine WBC (0-5) /hpf Ur Squamous Epith Cells (0-4) /hpf Amorphous Sediment (None) /hpf Urine Bacteria (None) /hpf Urine Mucus (None) /hpf 07/07/23 Range/Units 21:23 WBC (3.8-10.6) k/uL Lymphocytes # (1.0-4.8) k/uL APTT (22.0-30.0) sec Potassium (3.5-5.1) mmol/L Glucose (74-99) mg/dL Urine Appearance Turbid H (Clear) Urine Protein 2+ H (Negative) Urine Blood Large H (Negative) Ur Leukocyte Esterase Moderate H (Negative) Urine RBC >182 H (0-5) /hpf Urine WBC >182 H (0-5) /hpf Ur Squamous Epith Cells 12 H (0-4) /hpf Amorphous Sediment Rare H (None) /hpf Urine Bacteria Many H (None) /hpf Urine Mucus Many H (None) /hpf Thrombosis Risk Factor Assmnt - Choose All That Apply Any of the Below Risk Factors Present?: Yes Each Factor Represents 1 point: Obesity (BMI >25) Other Risk Factors: No Other congenital or acquired thrombophilia - If yes, enter type in comment: No Thrombosis Risk Factor Assessment Total Risk Factor Score: 1 Thrombosis Risk Factor Assessment Level: Low Risk
[2023-07-08] MEDS: ENOXAPARIN 40 MG/0.4 ML SYRINGE SQ SCH (15:54)
[2023-07-08] MEDS: ACETAMINOPHEN TAB 325 MG TAB PO PRN (18:27)
[2023-07-08] MEDS ORDERED: ADDERALL 15 MG PO SCH (21:00)
[2023-07-09 01:33] VITALS: RESP 16
[2023-07-09 09:25] VITALS: BP 112/67; PULSE 68; TEMP 97.9
--- NOTE | 2023-07-09 15:40 | P.PN ---
Subjective Progress Note Date: 07/09/23 No acute overnight event, indicates flank pain has completely resolved and her bladder symptoms have also resolved this morning Objective - Vital Signs Vital signs: Vital Signs Temp 97.9 F 07/09/23 07:34 Pulse 68 07/09/23 07:34 Resp 16 07/09/23 07:34 BP 112/67 07/09/23 07:34 Pulse Ox 94 L 07/09/23 07:34 FiO2 Intake & Output 07/08/23 07/09/23 07/09/23 18:59 06:59 18:59 Intake Total 1800 Balance 1800 Intake: Intake, IV Titration 1800 Amount Sodium Chloride 0.9% 1, 1800 000 ml @ 150 mls/hr IV . Q6H40M [facility] Rx#:[id number] Other: Voiding Method Toilet Toilet Toilet # Voids 3 3 - Constitutional General appearance: Present: no acute distress - Gastrointestinal General gastrointestinal: Present: soft. Absent: distended, tenderness - Psychiatric Psychiatric: Present: A&O x's 3 - Labs CBC & Chem 7: 07/07/23 21:20 07/07/23 21:20 Labs: Microbiology - Last 24 Hours (Table) 07/07/23 21:23 Urine Culture - Preliminary Urine,Voided Gram Neg Bacilli Assessment and Plan Assessment: 32-year-old female with history of 2 mm right-sided UVJ stone, UTI. Pain has completely resolved, denies any bladder symptoms this morning -Okay for discharge from urology standpoint, recommend discharging with p.o. antibiotic. Will discharge on a 5-day course of Keflex
--- NOTE | 2023-07-09 18:06 | P.DS ---
Providers Date of admission: 07/07/23 23:15 Expected date of discharge: 07/09/23 Attending physician: Adis Ibrahim Consults: 07/07/23 23:15 Consult Physician Routine Consulting Provider: Chinmay Casey Consult Reason/Comments: urolithiasis Do you want consulting provider notified?: Yes, Notify in am Primary care physician: Mic Gross [facility] Course: Chief Complaint: Right flank pain This is a pleasant 32[address] Gross. Chronic stable medical conditions include asthma, bipolar disorder, occasional migraines. Patient yesterday started with pain in the right flank. Acute need by chills vomiting. Urine became dark in color. Tired rundown. Presented to the ER. CT scan showed ureter to be dilated down to the pelvis without. Urology consulted. No fever noted. July 08: Right flank pain resolved. Looks like patient spontaneously passed the tiny stone. Feeling well. No fever no chills. Past medical history to include: Asthma, bipolar, migraines Social history: , does vaping. Marijuana occasionally. 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 Conjunctiva normal. HEENT: External appearance of nose and ears normal, oral cavity grossly normal ears pierced. NECK: JVD not raised; masses not palpable. HEART: First and second heart sounds are normal; no edema. LUNGS: Respiratory rate normal; clear to auscultation. ABDOMEN: Soft, no tenderness, liver spleen not palpable, no masses palpable. PSYCH: Alert and oriented x3; mood and affect normal. INVESTIGATIONS, reviewed in the clinical context: July 06: White count 15.2 hemoglobin 12.7 platelets 394 sodium 141 potassium 3.4 creatinine 0.63 LDL 131 triglycerides 173 UA positive for blood. WBC RBC. CT abdomen: Moderate right-sided hydroureteronephrosis. Ureter dilated down to the pelvis. Without sizable stone demonstrated. A punctate calculi along the right posterior aspect of the bladder could potentially be at the ureteropelvic junction or in the bladder lumen. Assessment: -Acute moderate right-sided hydroureteronephrosis. Possible stone at the ureteropelvic junction. Rather small., Possibly spontaneous past Follow-up with urology per their orders -Intermittent asthma Albuterol as needed -Bipolar disorder, in the past -ADHD Adderall 50 mg twice daily -Obesity BMI 35.4 Weight loss measures -Full code Disposition: Home Past Medical History Past Medical History: Asthma Additional Past Medical History / Comment(s): migraines, BIPOLAR History of Any Multi-Drug Resistant Organisms: None Reported Past Surgical History: Section, Tubal Ligation Past Anesthesia/Blood Transfusion Reactions: No Reported Reaction Past Psychological History: ADD/ADHD, Anxiety, Bipolar Smoking Status: Former smoker, Vaper Past Alcohol Use History: None Reported Past Drug Use History: Marijuana Plan - Discharge Summary Discharge Rx Participant: No New Discharge Prescriptions: New Cephalexin [Keflex] 500 mg PO Q8HR #15 cap Continue Dextroamphetamine/Amphetamine [Adderall] 15 mg PO BID Discharge Medication List Dextroamphetamine/Amphetamine [Adderall] 15 mg PO BID 07/08/23 [History] Cephalexin [Keflex] 500 mg PO Q8HR #15 cap 07/09/23 [Rx] Follow up Appointment(s)/Referral(s): Mic Gross MD [Primary Care Provider] - 07/13/23 1:00 pm Patient Instructions/Handouts: Kidney Stones (DC), Urinary Tract Infection in Women (DC) Activity/Diet/Wound Care/Special Instructions: dc if ok with urology Discharge Disposition: HOME SELF-CARE
== END 2023-07-09 12:17 | disposition home or self-care (01) ==
LOC: SUPCPDRO 20:24 → EC 20:24 → INTOOBSV 23:15 → 5NMEDONC 23:15 → UNDODISIN 07-09 12:17
PROVIDERS: ADMIT Hospitalist; ATTEND Hospitalist
DX: N13.6 Pyonephrosis (principal); J45.20 Mild intermittent asthma, uncomplicated; G43.909 Migraine, unspecified, not intractable, without status migrainosus; F31.9 Bipolar disorder, unspecified; F90.9 Attention-deficit hyperactivity disorder, unspecified type; E66.9 Obesity, unspecified; Z68.35 Body mass index [BMI] 35.0-35.9, adult; F17.290 Nicotine dependence, other tobacco product, uncomplicated; Z79.899 Other long term (current) drug therapy; Z98.891 History of uterine scar from previous surgery
CPT/HCPCS: 96376; 96361 ×2; 96365; 96372; 96375 ×2; 99285; 36415; 80053; 82150; 83605; 83690; 85025; 85610; 85730; 81001; 81025; 87086; 87077; 87186; 74176; G0378 ×3; J2270; J2405 ×2; J0696; J1650; J1885 ×2; J1170; 96374